=== PATIENT | male | born 1980 | race Caucasian/White ===

== ENCOUNTER 2024-04-06 16:14 | Emergency (ER) | payer OTHER, SELFPAY ==
--- NOTE | 2024-04-06 16:26 | ED_ITS ---
HPI - URI/Sore Throat General Chief Complaint: Upper Respiratory Infection Stated Complaint: Congestion/Sore Throat/Fever Time Seen by Provider: 04/06/24 16:16 Source: patient Mode of arrival: ambulatory Limitations: no limitations History of Present Illness HPI Narrative: Rodrigo is a 43-year-old male patient presenting to the clinic today with complaints of cough and cold symptoms x1 week however today he developed chills and feeling feverish. Also reporting sore throat starting today. Denies any chest pain or shortness of breath. Morrison like he was wheezing last night and took 2 puffs of his son inhaler and felt better MD elicited complaint: sore throat and nasal congestion Related Data Home Medications ?Medication ?Instructions ?Recorded ?Confirmed ?Last Taken ?Type gabapentin 300 mg capsule 300 mg PO DAILY 03/18/24 03/18/24 Unknown History loratadine 10 mg capsule (Allergy 10 mg PO DAILY 03/18/24 03/18/24 Unknown History Relief (loratadine)) pantoprazole 40 mg tablet,delayed 40 mg PO QAM 03/18/24 03/18/24 Unknown History release propranolol 40 mg tablet 80 mg PO Q12H 03/18/24 03/18/24 Unknown History topiramate 50 mg tablet 50 mg PO BID 03/18/24 03/18/24 Unknown History valsartan 80 1 tablet PO DAILY 03/18/24 03/18/24 Unknown History mg-hydrochlorothiazide 12.5 mg tablet Allergies Allergy/AdvReac Type Severity Reaction Status Date / Time No Known Allergies Allergy Verified 04/06/24 16:39 Review of Systems Review of Systems: Pertinent positives per HPI. Patient denies any rash, headache, visual changes, dizziness, shortness of breath, chest pain, palpitations, nausea, vomiting, diarrhea, constipation, abdominal pain, or any urinary issues. [facility] Surgical History Surgical History (System 03/24/24 @ 13:25 by Charmaine Copeland) History of wisdom tooth extraction History of knee surgery rt meniscus and Left meniscus Family History Family History (System 03/24/24 @ 13:25 by Charmaine Copeland) Grandparent Cerebrovascular accident Father Heart disease Social History Social History (System 03/24/24 @ 13:25 by Charmaine Copeland) Smoking status: Never smoker Alcohol intake: current Substance use: never Do You Feel Safe in your Home?: Yes Lack of Transportation: No Lack of Food: Never True Current Housing: I Have Housing Concerned About Future Housing: No Difficulty Paying Gas/Electric Bills: No Difficulty Paying for Meds: No Currently Unemployed: No Education: Master's Degree or Higher Difficulty w/ Childcare or Family Care: No Comments At the time of my signature, I reviewed and agree with the nursing past medical, surgical, social, and family history. There is no relevant family history pertinent to the patient complaint. Exam Narrative: General: Well-developed, well nourished, in no apparent distress Head: Normocephalic, atraumatic Eyes: Pupils equally round and reactive to light bilaterally, EOM intact, sclera and conjunctive clear, no discharge, lids normal Ears: TMs intact and congested, ear canals clear, no drainage, grossly hearing normal. Nose: Nares patent, clear nasal discharge, no inflammation, no sinus tenderness. Mouth: Oral pharynx red without lesions or masses, good dentition, MMM. Postnasal drip Neck: Supple, trachea midline, no enlargement of anterior or posterior cervical nodes, no thyroid masses or goiter palpable. Cardio: Regular rate and rhythm, s1 and s2 normal, no murmur appreciated. Resp: Clear to auscultation bilaterally, no rhonchi, rales, wheezing or rubs Course Course Emergency Course: Portions of this record may have been created with voice recognition software. Level of Care: Express Care Visit Vital Signs Vital signs: Vital Signs Temperature 37.7 C H 04/06/24 16:30 Pulse Rate 93 04/06/24 16:30 Respiratory Rate 16 04/06/24 16:30 Blood Pressure 137/79 04/06/24 16:30 Pulse Oximetry 100 04/06/24 16:30 Temperature 37.7 C H 04/06/24 16:30 Pulse Rate 93 04/06/24 16:30 Respiratory Rate 16 04/06/24 16:30 Blood Pressure 137/79 04/06/24 16:30 Pulse Oximetry 100 04/06/24 16:30 Vital signs reviewed MDM - URI/Sore Throat MDM Narrative Medical decision making narrative: At the time of visit patient is resting comfortably on the exam table. Patient appears to be nontoxic. Labs: Strep and influenza testing was performed. All testing was negative. Plan: I suspect patient has URI with cough and congestion/pharyngitis. Will place him on albuterol inhaler and prednisone. Supportive measures were discussed with the patient and they voiced understanding discharge instructions and agrees to treatment plan. Return precautions reviewed Differential Diagnosis Differential diagnosis: Likely upper respiratory infection, otitis media, sinusitis, viral infection, bronchitis, influenza, pharyngitis and other (COVID) Lab Data Labs: Lab Results 04/06/24 04/06/24 Range/Units 16:35 16:40 POC Influenza A Ag Negative (Negative) POC Influenza B Ag Negative (Negative) POC Grp A Strep Screen Negative (Negative) Discharge Plan Discharge Clinical Impression: Viral infection Upper respiratory infection Qualifiers: URI type: unspecified URI Qualified Code(s): J06.9 - Acute upper respiratory infection, unspecified Pharyngitis Qualifiers: Pharyngitis/tonsillitis etiology: unspecified etiology Qualified Code(s): J02.9 - Acute pharyngitis, unspecified Patient Disposition: Home, Self-Care Condition: Stable Instructions: Antibiotic Form, Pharyngitis (ED), Viral Syndrome (ED), Cold Symptoms (ED) Additional Instructions: Influenza and strep test were all negative. We will send strep for culture Take prescription medications only as prescribed Increase fluids and stay well hydrated Tylenol/motrin for pain/fever Flonase and OTC antihistamines as directed Vicks vapor rub to open sinuses Sinus rinses for congestion Cepacol spray, cough drops, throat lozenges, warm tea with honey/lemon, gargle salt water to soothe throat BRAT diet for diarrhea Clear liquids x 24 hours then advance as tolerated for nausea/vomiting Go to the ED if you develop a worsening in your condition- high fever not controlled by Tylenol or Motrin, dehydration, weakness, lethargy, shortness of breath, or chest pain. Follow up with your PCP in 3-5 days if symptoms persist. Patient Language: Hebrew Prescriptions: New prednisone 20 mg tablet 40 mg PO DAILY 5 Days Qty: 10 0RF albuterol sulfate 90 mcg/actuation HFA aerosol inhaler 2 puff inhalation Q4-6H PRN (Reason: shortness of breath or wheezing) 30 Days Qty: 8.5 0RF No Action valsartan-hydrochlorothiazide 80-12.5 mg tablet 1 tablet PO DAILY Allergy Relief (loratadine) 10 mg capsule 10 mg PO DAILY topiramate 50 mg tablet 50 mg PO BID gabapentin 300 mg capsule 300 mg PO DAILY propranolol 40 mg tablet 80 mg PO Q12H pantoprazole 40 mg tablet,delayed release (DR/EC) 40 mg PO QAM Follow-up/Referrals: Blake,MD Osvaldo [Primary Care Provider] - Stand Alone Forms: Work/School Release IP Time of Disposition: 16:47 Quality NIHSS Nursing Documentation ED NIHSS nursing documentation: reviewed/agree
[2024-04-06 16:30] VITALS: BP 137/79; PULSE 93; RESP 16; TEMP 37.7; O2SAT 100
[2024-04-06 16:37] LABS: EDSTREPNEGPOS1 Negative (Negative)
[2024-04-06 16:42] LABS: EDINFLUASCREEN Negative (Negative); EDINFLUBSCREEN Negative (Negative)
== END 2024-04-06 16:52 | disposition home or self-care (01) ==
PROVIDERS: Emergency Provider Nurse Practitioner Family; PCP Internal Medicine
DX: B34.9 Viral infection, unspecified (principal); J06.9 Acute upper respiratory infection, unspecified; J02.9 Acute pharyngitis, unspecified
CPT/HCPCS: 87081; 87804; 87880; 99213; G0463

== ENCOUNTER 2024-04-09 15:40 | Outpatient (CLI) | payer OTHER, SELFPAY ==
--- NOTE | ~2024-04-09 | MR_ITS ---
EXAMINATION: MR knee LT wo con DATE: 04/09/2024 16:19 INDICATION: Left knee pain. TECHNIQUE: Magnetic resonance imaging (MRI) of the left knee was performed without intravenous contra st. Sequences included axial PD-weighted FS FSE, coronal PD-weighted FSE and PD-weighted FS FSE, sagi ttal PD-weighted FSE, and sagittal T2-weighted FS FSE. COMPARISON: Left knee radiographs 03/18/2024 FINDINGS: Medial compartment: Medial meniscus is normal. Medial compartment cartilage is normal. Lateral compartment: There is a complex tear involving anterior horn and body of lateral meniscus. There is shallow partia l-thickness cartilage loss of tibial condyle. There is partial-thickness cartilage loss of femoral co ndyle, deep at the central articular surface. Osteophytes are noted. Patellofemoral compartment: The patellofemoral compartment cartilage is normal. Ligaments and tendons: The anterior and posterior cruciate ligament are normal. The medial collateral ligament and lateral c ollateral ligament complex are normal. There is mild patellar tendinopathy. Fluid: There is a small knee joint effusion. There is a small Oseguera's cyst. There is mild superficial infrap atellar bursitis. IMPRESSION: 1. Moderate chondrosis of lateral compartment. 2. Tear of lateral meniscus. 3. Small knee joint effusion. 4. Small Oseguera's cyst. Reviewed, dictated and finalized at location A. TH INFORMATION SPECIALIST
--- OUTSIDE RECORDS SUMMARY | 2024-04-09 15:50 | XMS_ITS | CONTINUITY OF CARE DOCUMENT ---
Author Name lo lo Address Unknown Organization [facility] Address [address] [place] [address] Phone [phone] Care Team Providers Care Railroad Commissioner Name Role Phone Henrry FLOYD, Bárbara Unavailable [phone] CANDACE WORLEY MD Unavailable [phone] CANDACE WORLEY MD Unavailable PROBLEMS Condition Status Date Provider Notes HTN essential active Mukesh Renteria MD Chest pain active Mukesh Renteria MD ENCOUNTERS Date Type Provider Location Encounter Diagnosis - In-person encounter Office Visit Mukesh Renteria MD [facility] Chest painHTN essential VITAL SIGNS Date Observation Value Provider Body Mass Index (Ratio) 36.03 kg/m2 Tirso Renteria MD blood pressure, cuff size large Ke krystian Gonzalez blood pressure, diastolic 97 mm[Hg] Jovany Gonzalez blood pressure, systolic 147 mm[Hg] Rhys Gonzalez oxygen saturation, oximetry 99 % Melanie Gonzalez respiratory rate E&M 16 /min Melanie guido pulse rate 82 /min Melanie rowell weight E&M 244 [lb_av] Melanie barclayer height E&M 69 [in_i] Melanie rowell HISTORY OF MEDICATION USE Medication Status Instructions Dates Provider Indications Com ments hydroxyzine pamoate 25 mg capsule active Melanie Gonzalez pantoprazole 40 mg tablet,delayed release (DR/EC) active Melanie Gonzalez valsartan-hydrochlo rothiazide 160-12.5 mg tablet active Melanie Gonzalez SOCIAL HISTORY Date Observation Value Provider drug use no Mukesh Renteria MD alcohol use, average drinks per day social Mukesh Renteria MD alcohol use yes Mukesh Renteria MD social history E&M S moking History: P diamond has never smoked. Mukesh Renteria MD social history reviewed E&M revi ewed - no changes required Mukesh Renteria MD smoking status Never smoker Melanie monreal INS[employer]ANCE PROVIDERS Payer name Policy type / Coverage type [employer] party ID [facility] [id number] Other [id number] ADVANCE DIRECTIVES Name Date DISCUSSED - NO DECISION MADE TREATMENT PLAN Date Name Performer [id number],S,No follow up unless he needs to Mukesh Renteria MD [id number],S, B P today: 147/97 Mukesh Renteria MD Cardiology:No follow up unless h e needs to Mukesh Renteria MD Cardiology: B P today: 147/97 Mukesh Renteria MD
--- OUTSIDE RECORDS SUMMARY | 2024-04-09 15:50 | XMS_ITS | Data Portability ---
Author Organization [facility] Wilbur Piedra Address [address] [place] [address] Care Team Providers Care Case Technician Name Role Phone CANDACE LOZANO Primary Care Provider Unavailabl e Assessment Encounter Date Assessment Date Assessment LastModified by Organization Details LastModified Time 05/06/2023 05/06/2023 The face could b e some early trigeminal neuralgia may be some TMJ I will go ahead and get a mandible x-ray we will start gabapentin 300 mg at night side effects discussed he has an appointment with his neurologist in July and I told him to be sure that he brings this up headaches Topamax hypertension valsartan hydrochlorothiazide GERD pantoprazole anxiety hydroxyzine follow-up with me in 4 months to 6 months time blood work ordered Not available 05/06/2023 12:22:27 08/15/2023 08/15/2023 Blood pressure controlled restart gabapentin for his neurological sensations in his head and he has seen neurologist before also hydrocortisone suppositories follow-up 6 months. [email or web address] Not available 08/17/2023 21:52:29 12/16/2023 12/16/2023 blood work urine scrotal ultrasound urology hypertension headache GERD and his scrotal pain all discussed. All questions answered. [email or web address] Not available 12/21/2023 20:39:32 01/23/2024 01/23/2024 given the chroni city of the symptoms we will obtain blood work a CT of the abdomen and pelvis also we will give him some pantoprazole he will continue to follow up with Neurology and Urology Not available 01/25/2024 13:09:21 Plan of Treatment Reminders Order Date Submit Date Provider Last Modified By Organization Details Last Modified Time Details Appointments ANY 15 2024 09:00A M Candace Lozano MD Not available Not available Not available Lab urinalysi s, microscop ic 2023 024 FELICIA Healy, [address], [place], [address], 05/07/2023 06:16:53 CBC w/ auto diff 2023 024 FELICIA Healy, [address], [place], [address], 05/07/2023 06:16:51 CMP, serum or plasma 2023 024 FELICIA Healy, [address], [place], [address], 05/07/2023 06:16:50 lipid panel, serum 2023 024 FELICIA Healy, [address], [place], [address], 05/07/2023 06:16:49 CBC w/ auto diff 2023 024 FELICIA Healy, [address], [place], [address], 08/17/2023 08:22:46 lipid panel, serum 2023 024 FELICIA Healy, [address], [place], [address], 08/17/2023 08:22:44 CMP, serum or plasma 2023 024 FELICIA Healy, [address], [place], [address], 08/17/2023 08:22:44 urinalysi s, complete 2023 024 FELICIA Healy, [address], [place], [address], 08/17/2023 08:22:45 urinalysi s, complete 2023 024 FELICIA Healy, [address], [place], [address], 12/17/2023 09:15:23 CBC w/ auto diff 2023 024 FELICIA Healy, [address], [place], [address], 12/17/2023 09:15:25 lipid panel, serum 2023 024 FELICIA Healy, [address], [place], [address], 12/17/2023 09:15:19 CMP, serum or plasma 2023 024 FELICIA Healy, [address], [place], [address], 12/17/2023 09:15:21 urinalysi s, microscop ic 2023 024 FELICIA Healy, [address], [place], [address], 12/17/2023 09:15:22 CBC w/ auto diff 2023 024 FELICIA Healy, [address], [place], [address], 01/25/2024 08:24:50 lipase, serum or plasma 2023 024 FELICIA Healy, [address], [place], [address], 01/25/2024 08:24:49 CMP, serum or plasma 2023 024 FELICIA Healy, [address], [place], [address], 01/25/2024 08:24:48 ESR (erythroc yte sedimenta tion rate), blood 2023 024 [place] [facility], [address], [place], [address], 01/25/2024 08:24:51 Referral urologist referral 2023 024 мария Garvey MD, [address] [facility] [address], [place], [address], 03/17/2024 12:55:47 Procedures None recorded. Surgeries None recorded. Imaging XR, mandible 2023 024 [facility] (Imaging), [address], [place], [address], 08/19/2023 10:01:41 US, scrotum - With Doppler [address] (Imaging), [address] [facility] [address], [place], [address], 12/24/2023 15:57:28 CT, abdomen + pelvis, w/ contrast 2023 024 [facility] (Imaging), [address] [facility] [facility] [address], [place], [address], 02/07/2024 15:38:37 Medication Orders gabapenti n 300 mg capsule 2023 024 [place] [address] [facility] #[id number], [address], [place], [place], [id number], 05/06/2023 11:25:48 hydrocort isone acetate 25 mg rectal supposito ry 2023 024 [place] [address] [facility] #[id number], [address], [place], [place], [id number], 08/15/2023 21:48:30 ibuprofen 800 mg tablet 2023 024 [email or web address] [facility] #[id number], [address], [place], [place], [id number], 12/16/2023 13:54:45 pantopraz ole 40 mg tablet,de layed release 2023 024 [facility] #[id number], [address], [place], [place], [id number], 01/23/2024 18:11:15 Patient TargetsNo targets recorded. Patient Instructions Encounter Date Encounter Id Patient Instructions Last Modified By Organization Details Last Modified Time 12/16/2023 [id number] A healthy lifestyle: care instructions [email or web address] Not available 12/16/2023 10:51:41 Reason for Referral Urologist Referral for Pain in scrotum Referring Physician: Candace Lozano, Internal Medicine, Encounter Date: 12/16/2023 Results Created Date Observation Date Name Description Value Unit Range Abnormal Flag Note LastModifiedBy Organization Detail LastModifiedTime 05/06/1905/07/2023 LIPID PANEL cholesterol, total 189 mg/dL 100-19 9 Not Available [facility] [address] [facility], [place], [address], 05/07/2023 06:16:49 05/06/1905/07/2023 LIPID PANEL triglyceride s 97 mg/dL 0-149 Not Available [facility] [address] [facility], [place], [address], 05/07/2023 06:16:49 05/06/1905/07/2023 LIPID PANEL HDL cholesterol 49 mg/dL >39 Not Available [facility] [address] [place], [address], 05/07/2023 06:16:49 05/06/1905/07/2023 LIPID PANEL VLDL cholesterol geovany 18 mg/dL 5-40 Not Available [facility] [address] [place], [address], 05/07/2023 06:16:49 05/06/19 24 05/07/2023 LIPID PANEL LDL chol calc ([facility]) 122 mg/dL 0-99 above high normal Not Available [facility] [address] [place], [address], 05/07/2023 06:16:49 05/06/19 24 05/07/2023 COMP. METAB OLIC PANEL (14) glucose 92 mg/dL 70-99 Not Available [facility] [address] [place], [address], 05/07/2023 06:16:50 05/06/19 24 05/07/2023 COMP. METAB OLIC PANEL (14) BUN 12 mg/dL 6-24 Not Available [facility] [address] [place], [address], 05/07/2023 06:16:50 05/06/19 24 05/07/2023 COMP. METAB OLIC PANEL (14) creatinine 1.11 mg/dL 0.76-1 .27 Not Available [facility] [address] [place], [address], 05/07/2023 06:16:50 05/06/19 24 05/07/2023 COMP. METAB OLIC PANEL (14) eGFR 86 mL/mi n/1.7 3 >59 Not Available [facility] [address] [place], [address], 05/07/2023 06:16:50 05/06/19 24 05/07/2023 COMP. METAB OLIC PANEL (14) BUN/creatini ne ratio 11 9-20 Not Available [facility] [address] [place], [address], 05/07/2023 06:16:50 05/06/19 24 05/07/2023 COMP. METAB OLIC PANEL (14) sodium 141 mmol/ L 134-14 4 Not Available [facility] [address] [place], [address], 05/07/2023 06:16:50 05/06/19 24 05/07/2023 COMP. METAB OLIC PANEL (14) potassium 4.2 mmol/ L 3.5-5. 2 Not Available [facility] [address] [place], [address], 05/07/2023 06:16:50 05/06/19 24 05/07/2023 COMP. METAB OLIC PANEL (14) chloride 107 mmol/ L 96-106 above high normal Not Available [facility] [address] [place], [address], 05/07/2023 06:16:50 05/06/19 24 05/07/2023 COMP. METAB OLIC PANEL (14) carbon dioxide, total 22 mmol/ L 20-29 Not Available [facility] [address] [place], [address], 05/07/2023 06:16:50 05/06/19 24 05/07/2023 COMP. METAB OLIC PANEL (14) calcium 9.0 mg/dL 8.7-10 .2 Not Available [facility] [address] [place], [address], 05/07/2023 06:16:50 05/06/19 24 05/07/2023 COMP. METAB OLIC PANEL (14) protein, total 6.7 g/dL 6.0-8. 5 Not Available [facility] [address] [facility] [place], [address], 05/07/2023 06:16:50 05/06/19 24 05/07/2023 COMP. METAB OLIC PANEL (14) albumin 4.6 g/dL 4.1-5. 1 Not Available [facility] [address] [facility] [place], [address], 05/07/2023 06:16:50 05/06/19 24 05/07/2023 COMP. METAB OLIC PANEL (14) globulin, total 2.1 g/dL 1.5-4. 5 Not Available [facility] [address] [facility], [place], [address], 05/07/2023 06:16:50 05/06/19 24 05/07/2023 COMP. METAB OLIC PANEL (14) A/G ratio 2.2 1.2-2. 2 Not Available [facility] [address] [facility], [place], [address], 05/07/2023 06:16:50 05/06/19 24 05/07/2023 COMP. METAB OLIC PANEL (14) bilirubin, total 0.5 mg/dL 0.0-1. 2 Not Available [facility] [address] [facility] [place], [address], 05/07/2023 06:16:50 05/06/19 24 05/07/2023 COMP. METAB OLIC PANEL (14) alkaline phosphatase 59 IU/L 44-121 Not Available [facility] [address] [facility], [place], [address], 05/07/2023 06:16:50 05/06/19 24 05/07/2023 COMP. METAB OLIC PANEL (14) AST (SGOT) 18 IU/L 0-40 Not Available [facility] [address] [facility], [place], [address], 05/07/2023 06:16:50 05/06/19 24 05/07/2023 COMP. METAB OLIC PANEL (14) ALT (SGPT) 18 IU/L 0-44 Not Available [facility] [address] [facility], [place], [address], 05/07/2023 06:16:50 05/06/19 24 05/07/2023 CBC WITH DIFFE RENTI AL/PL ATELE T WBC 7.1 x10e3 /uL 3.4-10 .8 Not Available [facility] [address] [facility], [place], [address], 05/07/2023 06:16:51 05/06/1905/07/2023 CBC WITH DIFFE RENTI AL/PL ATELE T RBC 5.24 x10e6 /uL 4.14-5 .80 Not Available [facility] [address] [place], [address], 05/07/2023 06:16:51 05/06/19 24 05/07/2023 CBC WITH DIFFE RENTI AL/PL ATELE T hemoglobin 15.4 g/dL 13.0-1 7.7 Not Available [facility] [address] [place], [address], 05/07/2023 06:16:51 05/06/19 24 05/07/2023 CBC WITH DIFFE RENTI AL/PL ATELE T hematocrit 45.3 % 37.5-5 1.0 Not Available [facility] [address] [place], [address], 05/07/2023 06:16:51 05/06/1905/07/2023 CBC WITH DIFFE RENTI AL/PL ATELE T MCV 87 fL 79-97 Not Available [facility] [address] [place], [address], 05/07/2023 06:16:51 05/06/19 24 05/07/2023 CBC WITH DIFFE RENTI AL/PL ATELE T MCH 29.4 pg 26.6-3 3.0 Not Available [facility] [address] [place], [address], 05/07/2023 06:16:51 05/06/19 24 05/07/2023 CBC WITH DIFFE RENTI AL/PL ATELE T MCHC 34.0 g/dL 31.5-3 5.7 Not Available [facility] [address] [facility], [place], [address], 05/07/2023 06:16:51 05/06/19 24 05/07/2023 CBC WITH DIFFE RENTI AL/PL ATELE T RDW 13.0 % 11.6-1 5.4 Not Available [facility] [address] [facility], [place], [address], 05/07/2023 06:16:51 05/06/19 24 05/07/2023 CBC WITH DIFFE RENTI AL/PL ATELE T platelets 239 x10e3 /uL 150-45 0 Not Available [facility] [address] [place], [address], 05/07/2023 06:16:51 05/06/19 24 05/07/2023 CBC WITH DIFFE RENTI AL/PL ATELE T neutrophils 72 % notest ab. Not Available [facility] [address] [place], [address], 05/07/2023 06:16:51 05/06/19 24 05/07/2023 CBC WITH DIFFE RENTI AL/PL ATELE T lymphs 18 % notest ab. Not Available [facility] [address] [place], [address], 05/07/2023 06:16:51 05/06/19 24 05/07/2023 CBC WITH DIFFE RENTI AL/PL ATELE T monocytes 8 % notest ab. Not Available [facility] [address] [facility], [place], [address], 05/07/2023 06:16:51 05/06/19 24 05/07/2023 CBC WITH DIFFE RENTI AL/PL ATELE T eos 1 % notest ab. Not Available [facility] [address] [facility], [place], [address], 05/07/2023 06:16:51 05/06/19 24 05/07/2023 CBC WITH DIFFE RENTI AL/PL ATELE T basos 1 % notest ab. Not Available [facility] [address] [facility], [place], [address], 05/07/2023 06:16:51 05/06/19 24 05/07/2023 CBC WITH DIFFE RENTI AL/PL ATELE T neutrophils (absolute) 5.2 x10e3 /uL 1.4-7. 0 Not Available [facility] [address] [facility], [place], [address], 05/07/2023 06:16:51 05/06/19 24 05/07/2023 CBC WITH DIFFE RENTI AL/PL ATELE T lymphs (absolute) 1.3 x10e3 /uL 0.7-3. 1 Not Available [facility] [address] [facility], [place], [address], 05/07/2023 06:16:51 05/06/19 24 05/07/2023 CBC WITH DIFFE RENTI AL/PL ATELE T monocytes(ab solute) 0.5 x10e3 /uL 0.1-0. 9 Not Available [facility] [address] [facility], [place], [address], 05/07/2023 06:16:51 05/06/19 24 05/07/2023 CBC WITH DIFFE RENTI AL/PL ATELE T eos (absolute) 0.1 x10e3 /uL 0.0-0. 4 Not Available [facility] [address] [facility], [place], [address], 05/07/2023 06:16:51 05/06/19 24 05/07/2023 CBC WITH DIFFE RENTI AL/PL ATELE T baso (absolute) 0.1 x10e3 /uL 0.0-0. 2 Not Available [facility] [address] [facility], [place], [address], 05/07/2023 06:16:51 05/06/19 24 05/07/2023 CBC WITH DIFFE RENTI AL/PL ATELE T immature granulocytes 0 % notest ab. Not Available [facility] [address] [facility], [place], [address], 05/07/2023 06:16:51 05/06/19 24 05/07/2023 CBC WITH DIFFE RENTI AL/PL ATELE T immature grans (abs) 0.0 x10e3 /uL 0.0-0. 1 Not Available [facility] [address] [place], [address], 05/07/2023 06:16:51 05/06/19 24 05/07/2023 MICRO SCOPI C EXAMI NATIO N WBC None seen /hpf 0-5 Not Available [facility] [address] [place], [address], 05/07/2023 06:16:53 05/06/19 24 05/07/2023 MICRO SCOPI C EXAMI NATIO N RBC 0-2 /hpf 0-2 Not Available [facility] [address] [place], [address], 05/07/2023 06:16:53 05/06/19 24 05/07/2023 MICRO SCOPI C EXAMI NATIO N epithelial cells (non renal) None seen /hpf 0-10 Not Available [facility] ([facility] [facility]) [address] [facility], [place], [address], 05/07/2023 06:16:53 05/06/19 24 05/07/2023 MICRO SCOPI C EXAMI NATIO N casts None seen /lpf nonese en Not Available [facility] [address] [facility], [place], [address], 05/07/2023 06:16:53 05/06/19 24 05/07/2023 MICRO SCOPI C EXAMI NATIO N bacteria None seen nonese en/few Not Available [facility] [address] [facility], [place], [address], 05/07/2023 06:16:53 08/16/19 24 08/17/2023 LIPID PANEL cholesterol, total 202 mg/dL 100-19 9 above high normal Not Available [facility] [address] [facility], [place], [address], 08/17/2023 08:22:44 08/16/19 24 08/17/2023 LIPID PANEL triglyceride s 101 mg/dL 0-149 Not Available [facility] [address] [facility], [place], [address], 08/17/2023 08:22:44 08/16/19 24 08/17/2023 LIPID PANEL HDL cholesterol 39 mg/dL >39 below low normal Not Available [facility] [address] [facility], [place], [address], 08/17/2023 08:22:44 08/16/19 24 08/17/2023 LIPID PANEL VLDL cholesterol geovany 18 mg/dL 5-40 Not Available [facility] [address] [facility], [place], [address], 08/17/2023 08:22:44 08/16/19 24 08/17/2023 LIPID PANEL LDL chol calc ([facility]) 145 mg/dL 0-99 above high normal Not Available [facility] [address] [place], [address], 08/17/2023 08:22:44 08/16/19 24 08/17/2023 COMP. METAB OLIC PANEL (14) glucose 86 mg/dL 70-99 Not Available [facility] [address] [place], [address], 08/17/2023 08:22:44 08/16/19 24 08/17/2023 COMP. METAB OLIC PANEL (14) BUN 14 mg/dL 6-24 Not Available [facility] [address] [place], [address], 08/17/2023 08:22:44 08/16/19 24 08/17/2023 COMP. METAB OLIC PANEL (14) creatinine 1.26 mg/dL 0.76-1 .27 Not Available [facility] [address] [place], [address], 08/17/2023 08:22:44 08/16/19 24 08/17/2023 COMP. METAB OLIC PANEL (14) eGFR 73 mL/mi n/1.7 3 >59 Not Available [facility] [address] [place], [address], 08/17/2023 08:22:44 08/16/19 24 08/17/2023 COMP. METAB OLIC PANEL (14) BUN/creatini ne ratio 11 9-20 Not Available [facility] [address] [place], [address], 08/17/2023 08:22:44 08/16/19 24 08/17/2023 COMP. METAB OLIC PANEL (14) sodium 140 mmol/ L 134-14 4 Not Available [facility] [address] [place], [address], 08/17/2023 08:22:44 08/16/19 24 08/17/2023 COMP. METAB OLIC PANEL (14) potassium 3.9 mmol/ L 3.5-5. 2 Not Available [facility] [address] [place], [address], 08/17/2023 08:22:44 08/16/19 24 08/17/2023 COMP. METAB OLIC PANEL (14) chloride 106 mmol/ L 96-106 Not Available [facility] [address] [place], [address], 08/17/2023 08:22:44 08/16/19 24 08/17/2023 COMP. METAB OLIC PANEL (14) carbon dioxide, total 19 mmol/ L 20-29 below low normal Not Available [facility] [address] [place], [address], 08/17/2023 08:22:44 08/16/19 24 08/17/2023 COMP. METAB OLIC PANEL (14) calcium 9.1 mg/dL 8.7-10 .2 Not Available [facility] [address] [place], [address], 08/17/2023 08:22:44 08/16/19 24 08/17/2023 COMP. METAB OLIC PANEL (14) protein, total 6.9 g/dL 6.0-8. 5 Not Available [facility] [address] [place], [address], 08/17/2023 08:22:44 08/16/19 24 08/17/2023 COMP. METAB OLIC PANEL (14) albumin 4.3 g/dL 4.1-5. 1 Not Available [facility] [address] [place], [address], 08/17/2023 08:22:44 08/16/19 24 08/17/2023 COMP. METAB OLIC PANEL (14) globulin, total 2.6 g/dL 1.5-4. 5 Not Available [facility] [address] [place], [address], 08/17/2023 08:22:44 08/16/19 24 08/17/2023 COMP. METAB OLIC PANEL (14) A/G ratio 1.7 Not Available [facility] [address] [facility], [place], [address], 08/17/2023 08:22:44 08/16/19 24 08/17/2023 COMP. METAB OLIC PANEL (14) bilirubin, total 0.7 mg/dL 0.0-1. 2 Not Available [facility] [address] [place], [address], 08/17/2023 08:22:44 08/16/19 24 08/17/2023 COMP. METAB OLIC PANEL (14) alkaline phosphatase 63 IU/L 44-121 Not Available [facility] [address] [place], [address], 08/17/2023 08:22:44 08/16/19 24 08/17/2023 COMP. METAB OLIC PANEL (14) AST (SGOT) 14 IU/L 0-40 Not Available [facility] [address] [place], [address], 08/17/2023 08:22:44 08/16/19 24 08/17/2023 COMP. METAB OLIC PANEL (14) ALT (SGPT) 15 IU/L 0-44 Not Available [facility] [address] [place], [address], 08/17/2023 08:22:44 08/16/19 24 08/17/2023 MICRO SCOPI C EXAMI NATIO N WBC None seen /hpf 0-5 Not Available [facility] [address] [facility], [place], [address], 08/17/2023 08:22:45 08/16/19 24 08/17/2023 MICRO SCOPI C EXAMI NATIO N RBC None seen /hpf 0-2 Not Available [facility] [address] [facility], [place], [address], 08/17/2023 08:22:45 08/16/19 24 08/17/2023 MICRO SCOPI C EXAMI NATIO N epithelial cells (non renal) None seen /hpf 0-10 Not Available [facility] [address] [facility], [place], [address], 08/17/2023 08:22:45 08/16/19 24 08/17/2023 MICRO SCOPI C EXAMI NATIO N casts None seen /lpf nonese en Not Available [facility] [address] [facility], [place], [address], 08/17/2023 08:22:45 08/16/19 24 08/17/2023 MICRO SCOPI C EXAMI NATIO N bacteria None seen nonese en/few Not Available [facility] [address] [facility], [place], [address], 08/17/2023 08:22:45 08/16/19 24 08/17/2023 URINA LYSIS , COMPL ETE specific gravity 1.027 1.005- 1.030 Not Available [facility] [address] [facility], [place], [address], 08/17/2023 08:22:45 08/16/19 24 08/17/2023 URINA LYSIS , COMPL ETE pH 5.5 5.0-7. 5 Not Available [facility] [address] [facility], [place], [address], 08/17/2023 08:22:45 08/16/19 24 08/17/2023 URINA LYSIS , COMPL ETE urine-color YELLOW yellow Not Available [facility] [address] [facility], [place], [address], 08/17/2023 08:22:45 08/16/19 24 08/17/2023 URINA LYSIS , COMPL ETE appearance CLEAR clear Not Available [facility] [address] [place], [address], 08/17/2023 08:22:45 08/16/19 24 08/17/2023 URINA LYSIS , COMPL ETE WBC esterase NEGATI VE negati ve Not Available [facility] [address] [place], [address], 08/17/2023 08:22:45 08/16/19 24 08/17/2023 URINA LYSIS , COMPL ETE protein NEGATI VE negati ve/tra ce Not Available [facility] [address] [place], [address], 08/17/2023 08:22:45 08/16/19 24 08/17/2023 URINA LYSIS , COMPL ETE glucose NEGATI VE negati ve Not Available [facility] [address] [place], [address], 08/17/2023 08:22:45 08/16/19 24 08/17/2023 URINA LYSIS , COMPL ETE ketones NEGATI VE negati ve Not Available [facility] [address] [place], [address], 08/17/2023 08:22:45 08/16/19 24 08/17/2023 URINA LYSIS , COMPL ETE occult blood NEGATI VE negati ve Not Available [facility] [address] [place], [address], 08/17/2023 08:22:45 08/16/19 24 08/17/2023 URINA LYSIS , COMPL ETE bilirubin NEGATI VE negati ve Not Available [facility] [address] [facility], [place], [address], 08/17/2023 08:22:45 08/16/19 24 08/17/2023 URINA LYSIS , COMPL ETE urobilinogen ,semi-qn 0.2 mg/dL 0.2-1. 0 Not Available [facility] [address] [facility], [place], [address], 08/17/2023 08:22:45 08/16/19 24 08/17/2023 URINA LYSIS , COMPL ETE nitrite, urine NEGATI VE negati ve Not Available [facility] [address] [facility], [place], [address], 08/17/2023 08:22:45 08/16/19 24 08/17/2023 URINA LYSIS , COMPL ETE microscopic examination COMMEN T Micro scopi c follo ws if indic ated. Not Available [facility] [address] [facility], [place], [address], 08/17/2023 08:22:45 08/16/19 24 08/17/2023 URINA LYSIS , COMPL ETE microscopic examination SEE BELOW: Micro scopi c was indic ated and was perfo rmed. Not Available [facility] [address] [facility], [place], [address], 08/17/2023 08:22:45 08/16/19 24 08/17/2023 CBC WITH DIFFE RENTI AL/PL ATELE T WBC 6.3 x10e3 /uL 3.4-10 .8 Not Available [facility] [address] [place], [address], 08/17/2023 08:22:46 08/16/19 24 08/17/2023 CBC WITH DIFFE RENTI AL/PL ATELE T RBC 5.46 x10e6 /uL 4.14-5 .80 Not Available [facility] [address] [place], [address], 08/17/2023 08:22:46 08/16/19 24 08/17/2023 CBC WITH DIFFE RENTI AL/PL ATELE T hemoglobin 16.0 g/dL 13.0-1 7.7 Not Available [facility] [address] [place], [address], 08/17/2023 08:22:46 08/16/19 24 08/17/2023 CBC WITH DIFFE RENTI AL/PL ATELE T hematocrit 47.6 % 37.5-5 1.0 Not Available [facility] [address] [place], [address], 08/17/2023 08:22:46 08/16/19 24 08/17/2023 CBC WITH DIFFE RENTI AL/PL ATELE T MCV 87 fL 79-97 Not Available [facility] [address] [place], [address], 08/17/2023 08:22:46 08/16/19 24 08/17/2023 CBC WITH DIFFE RENTI AL/PL ATELE T MCH 29.3 pg 26.6-3 3.0 Not Available [facility] [address] [place], [address], 08/17/2023 08:22:46 08/16/19 24 08/17/2023 CBC WITH DIFFE RENTI AL/PL ATELE T MCHC 33.6 g/dL 31.5-3 5.7 Not Available [facility] [address] [place], [address], 08/17/2023 08:22:46 08/16/19 24 08/17/2023 CBC WITH DIFFE RENTI AL/PL ATELE T RDW 13.3 % 11.6-1 5.4 Not Available [facility] [address] [facility], [place], [address], 08/17/2023 08:22:46 08/16/19 24 08/17/2023 CBC WITH DIFFE RENTI AL/PL ATELE T platelets 268 x10e3 /uL 150-45 0 Not Available [facility] [address] [facility], [place], [address], 08/17/2023 08:22:46 08/16/19 24 08/17/2023 CBC WITH DIFFE RENTI AL/PL ATELE T neutrophils 68 % notest ab. Not Available [facility] [address] [facility], [place], [address], 08/17/2023 08:22:46 08/16/19 24 08/17/2023 CBC WITH DIFFE RENTI AL/PL ATELE T lymphs 23 % notest ab. Not Available [facility] [address] [facility], [place], [address], 08/17/2023 08:22:46 08/16/19 24 08/17/2023 CBC WITH DIFFE RENTI AL/PL ATELE T monocytes 7 % notest ab. Not Available [facility] [address] [facility], [place], [address], 08/17/2023 08:22:46 08/16/19 24 08/17/2023 CBC WITH DIFFE RENTI AL/PL ATELE T eos 1 % notest ab. Not Available [facility] [address] [facility], [place], [address], 08/17/2023 08:22:46 08/16/19 24 08/17/2023 CBC WITH DIFFE RENTI AL/PL ATELE T basos 1 % notest ab. Not Available [facility] ([facility]) [address] [place], [address], 08/17/2023 08:22:46 08/16/19 24 08/17/2023 CBC WITH DIFFE RENTI AL/PL ATELE T neutrophils (absolute) 4.3 x10e3 /uL 1.4-7. 0 Not Available [facility] [address] [place], [address], 08/17/2023 08:22:46 08/16/19 24 08/17/2023 CBC WITH DIFFE RENTI AL/PL ATELE T lymphs (absolute) 1.4 x10e3 /uL 0.7-3. 1 Not Available [facility] [address] [place], [address], 08/17/2023 08:22:46 08/16/19 24 08/17/2023 CBC WITH DIFFE RENTI AL/PL ATELE T monocytes(ab solute) 0.4 x10e3 /uL 0.1-0. 9 Not Available [facility] ([facility]) [address] [place], [address], 08/17/2023 08:22:46 08/16/19 24 08/17/2023 CBC WITH DIFFE RENTI AL/PL ATELE T eos (absolute) 0.1 x10e3 /uL 0.0-0. 4 Not Available [facility] ([facility]) [address] [place], [address], 08/17/2023 08:22:46 08/16/19 24 08/17/2023 CBC WITH DIFFE RENTI AL/PL ATELE T baso (absolute) 0.0 x10e3 /uL 0.0-0. 2 Not Available [facility] ([facility]) [address] [place], [address], 08/17/2023 08:22:46 08/16/19 24 08/17/2023 CBC WITH DIFFE RENTI AL/PL ATELE T immature granulocytes 0 % notest ab. Not Available [facility] [address] [facility], [place], [address], 08/17/2023 08:22:46 08/16/19 24 08/17/2023 CBC WITH DIFFE RENTI AL/PL ATELE T immature grans (abs) 0.0 x10e3 /uL 0.0-0. 1 Not Available [facility] [address] [place], [address], 08/17/2023 08:22:46 12/16/19 24 12/17/2023 LIPID PANEL cholesterol, total 208 mg/dL 100-19 9 above high normal Not Available [facility] [address] [place], [address], 12/17/2023 09:15:19 12/16/19 24 12/17/2023 LIPID PANEL triglyceride s 173 mg/dL 0-149 above high normal Not Available [facility] [address] [place], [address], 12/17/2023 09:15:19 12/16/19 24 12/17/2023 LIPID PANEL HDL cholesterol 41 mg/dL >39 Not Available [facility] [address] [place], [address], 12/17/2023 09:15:19 12/16/19 24 12/17/2023 LIPID PANEL VLDL cholesterol geovany 31 mg/dL 5-40 Not Available [facility] [address] [place], [address], 12/17/2023 09:15:19 12/16/19 24 12/17/2023 LIPID PANEL LDL chol calc ([facility]) 136 mg/dL 0-99 above high normal Not Available [facility] [address] [facility], [place], [address], 12/17/2023 09:15:19 12/16/1912/17/2023 COMP. METAB OLIC PANEL (14) glucose 79 mg/dL 70-99 Not Available [facility] [address] [facility] [place], [address], 12/17/2023 09:15:21 12/16/19 24 12/17/2023 COMP. METAB OLIC PANEL (14) BUN 13 mg/dL 6-24 Not Available [facility] [address] [facility] [place], [address], 12/17/2023 09:15:21 12/16/19 24 12/17/2023 COMP. METAB OLIC PANEL (14) creatinine 1.17 mg/dL 0.76-1 .27 Not Available [facility] [address] [facility], [place], [address], 12/17/2023 09:15:21 12/16/1912/17/2023 COMP. METAB OLIC PANEL (14) eGFR 80 mL/mi n/1.7 3 >59 Not Available [facility] [address] [facility], [place], [address], 12/17/2023 09:15:21 12/16/19 24 12/17/2023 COMP. METAB OLIC PANEL (14) BUN/creatini ne ratio 11 9-20 Not Available [facility] [address] [facility] [place], [address], 12/17/2023 09:15:21 12/16/19 24 12/17/2023 COMP. METAB OLIC PANEL (14) sodium 141 mmol/ L 134-14 4 Not Available [facility] [address] [facility] [place], [address], 12/17/2023 09:15:21 12/16/19 24 12/17/2023 COMP. METAB OLIC PANEL (14) potassium 4.4 mmol/ L 3.5-5. 2 Not Available [facility] [address] [facility], [place], [address], 12/17/2023 09:15:21 12/16/19 24 12/17/2023 COMP. METAB OLIC PANEL (14) chloride 105 mmol/ L 96-106 Not Available [facility] [address] [facility], [place], [address], 12/17/2023 09:15:21 12/16/1912/17/2023 COMP. METAB OLIC PANEL (14) carbon dioxide, total 23 mmol/ L 20-29 Not Available [facility] [address] [facility], [place], [address], 12/17/2023 09:15:21 12/16/1912/17/2023 COMP. METAB OLIC PANEL (14) calcium 9.6 mg/dL 8.7-10 .2 Not Available [facility] [address] [facility], [place], [address], 12/17/2023 09:15:21 12/16/1912/17/2023 COMP. METAB OLIC PANEL (14) protein, total 7.3 g/dL 6.0-8. 5 Not Available [facility] [address] [facility], [place], [address], 12/17/2023 09:15:21 12/16/1912/17/2023 COMP. METAB OLIC PANEL (14) albumin 4.6 g/dL 4.1-5. 1 Not Available [facility] [address] [facility], [place], [address], 12/17/2023 09:15:21 12/16/1912/17/2023 COMP. METAB OLIC PANEL (14) globulin, total 2.7 g/dL 1.5-4. 5 Not Available [facility] [address] [facility] [place], [address], 12/17/2023 09:15:21 12/16/19 24 12/17/2023 COMP. METAB OLIC PANEL (14) bilirubin, total 0.6 mg/dL 0.0-1. 2 Not Available [facility] [address] [facility] [place], [address], 12/17/2023 09:15:21 12/16/1912/17/2023 COMP. METAB OLIC PANEL (14) alkaline phosphatase 63 IU/L 44-121 Not Available [facility] [address] [facility], [place], [address], 12/17/2023 09:15:21 12/16/19 24 12/17/2023 COMP. METAB OLIC PANEL (14) AST (SGOT) 17 IU/L 0-40 Not Available [facility] [address] [place], [address], 12/17/2023 09:15:21 12/16/19 24 12/17/2023 COMP. METAB OLIC PANEL (14) ALT (SGPT) 18 IU/L 0-44 Not Available [facility] [address] [place], [address], 12/17/2023 09:15:21 12/16/19 24 12/17/2023 MICRO SCOPI C EXAMI NATIO N WBC NONE SEEN /hpf 0-5 Not Available [facility] [address] [place], [address], 12/17/2023 09:15:22 12/16/19 24 12/17/2023 MICRO SCOPI C EXAMI NATIO N RBC NONE SEEN /hpf 0-2 Not Available [facility] [address], [place], [address], 12/17/2023 09:15:22 12/16/1912/17/2023 MICRO SCOPI C EXAMI NATIO N epithelial cells (non renal) NONE SEEN /hpf 0-10 Not Available [facility] [address], [place], [address], 12/17/2023 09:15:22 12/16/1912/17/2023 MICRO SCOPI C EXAMI NATIO N casts NONE SEEN /lpf nonese en Not Available [facility] [address] [facility], [place], [address], 12/17/2023 09:15:22 12/16/1912/17/2023 MICRO SCOPI C EXAMI NATIO N bacteria NONE SEEN nonese en/few Not Available [facility] [address] [facility], [place], [address], 12/17/2023 09:15:22 12/16/1912/17/2023 URINA LYSIS , COMPL ETE specific gravity 1.012 1.005- 1.030 Not Available [facility] [address] [facility], [place], [address], 12/17/2023 09:15:23 12/16/1912/17/2023 URINA LYSIS , COMPL ETE pH 6.5 5.0-7. 5 Not Available [facility] [address] [facility], [place], [address], 12/17/2023 09:15:23 12/16/1912/17/2023 URINA LYSIS , COMPL ETE urine-color YELLOW yellow Not Available [facility] [address] [facility], [place], [address], 12/17/2023 09:15:23 12/16/1912/17/2023 URINA LYSIS , COMPL ETE appearance CLEAR clear Not Available [facility] [address] [facility], [place], [address], 12/17/2023 09:15:23 12/16/1912/17/2023 URINA LYSIS , COMPL ETE WBC esterase NEGATI VE negati ve Not Available [facility] [address] [facility], [place], [address], 12/17/2023 09:15:23 12/16/1912/17/2023 URINA LYSIS , COMPL ETE protein NEGATI VE negati ve/tra ce Not Available [facility] [address] [facility], [place], [address], 12/17/2023 09:15:23 12/16/1912/17/2023 URINA LYSIS , COMPL ETE glucose NEGATI VE negati ve Not Available [facility] [address] [facility], [place], [address], 12/17/2023 09:15:23 12/16/1912/17/2023 URINA LYSIS , COMPL ETE ketones NEGATI VE negati ve Not Available [facility] [address] [facility], [place], [address], 12/17/2023 09:15:23 12/16/1912/17/2023 URINA LYSIS , COMPL ETE occult blood NEGATI VE negati ve Not Available [facility] [address] [facility], [place], [address], 12/17/2023 09:15:23 12/16/1912/17/2023 URINA LYSIS , COMPL ETE bilirubin NEGATI VE negati ve Not Available [facility] [address] [facility], [place], [address], 12/17/2023 09:15:23 12/16/19 24 12/17/2023 URINA LYSIS , COMPL ETE urobilinogen ,semi-qn 0.2 mg/dL 0.2-1. 0 Not Available [facility] [address] [facility], [place], [address], 12/17/2023 09:15:23 12/16/1912/17/2023 URINA LYSIS , COMPL ETE nitrite, urine NEGATI VE negati ve Not Available [facility] [address] [facility], [place], [address], 12/17/2023 09:15:23 12/16/1912/17/2023 URINA LYSIS , COMPL ETE microscopic examination COMMEN T Micro scopi c follo ws if indic ated. Not Available [facility] [address] [facility], [place], [address], 12/17/2023 09:15:23 12/16/1912/17/2023 URINA LYSIS , COMPL ETE microscopic examination SEE BELOW: Micro scopi c was indic ated and was perfo rmed. Not Available [facility] [address] [facility], [place], [address], 12/17/2023 09:15:23 12/16/1912/17/2023 CBC WITH DIFFE RENTI AL/PL ATELE T WBC 8.9 x10e3 /uL 3.4-10 .8 Not Available [facility] [address] [facility], [place], [address], 12/17/2023 09:15:25 12/16/1912/17/2023 CBC WITH DIFFE RENTI AL/PL ATELE T RBC 5.62 x10e6 /uL 4.14-5 .80 Not Available [facility] [address] [facility], [place], [address], 12/17/2023 09:15:25 12/16/1912/17/2023 CBC WITH DIFFE RENTI AL/PL ATELE T hemoglobin 16.7 g/dL 13.0-1 7.7 Not Available [facility] [address] [facility], [place], [address], 12/17/2023 09:15:25 12/16/1912/17/2023 CBC WITH DIFFE RENTI AL/PL ATELE T hematocrit 51.9 % 37.5-5 1.0 above high normal Not Available [facility] [address] [facility], [place], [address], 12/17/2023 09:15:25 12/16/1912/17/2023 CBC WITH DIFFE RENTI AL/PL ATELE T MCV 92 fL 79-97 Not Available [facility] [address] [facility], [place], [address], 12/17/2023 09:15:25 12/16/1912/17/2023 CBC WITH DIFFE RENTI AL/PL ATELE T MCH 29.7 pg 26.6-3 3.0 Not Available [facility] [address] [facility], [place], [address], 12/17/2023 09:15:25 12/16/1912/17/2023 CBC WITH DIFFE RENTI AL/PL ATELE T MCHC 32.2 g/dL 31.5-3 5.7 Not Available [facility] [address] [place], [address], 12/17/2023 09:15:25 12/16/1912/17/2023 CBC WITH DIFFE RENTI AL/PL ATELE T RDW 12.7 % 11.6-1 5.4 Not Available [facility] [address] [place], [address], 12/17/2023 09:15:25 12/16/19 24 12/17/2023 CBC WITH DIFFE RENTI AL/PL ATELE T platelets 273 x10e3 /uL 150-45 0 Not Available [facility] [address] [facility], [place], [address], 12/17/2023 09:15:25 12/16/19 24 12/17/2023 CBC WITH DIFFE RENTI AL/PL ATELE T neutrophils 74 % notest ab. Not Available [facility] [address] [facility], [place], [address], 12/17/2023 09:15:25 12/16/1912/17/2023 CBC WITH DIFFE RENTI AL/PL ATELE T lymphs 16 % notest ab. Not Available [facility] [address] [facility], [place], [address], 12/17/2023 09:15:25 12/16/1912/17/2023 CBC WITH DIFFE RENTI AL/PL ATELE T monocytes 7 % notest ab. Not Available [facility] [address] [facility], [place], [address], 12/17/2023 09:15:25 12/16/19 24 12/17/2023 CBC WITH DIFFE RENTI AL/PL ATELE T eos 2 % notest ab. Not Available [facility] [address] [facility], [place], [address], 12/17/2023 09:15:25 12/16/19 24 12/17/2023 CBC WITH DIFFE RENTI AL/PL ATELE T basos 1 % notest ab. Not Available [facility] [address] [facility], [place], [address], 12/17/2023 09:15:25 12/16/19 24 12/17/2023 CBC WITH DIFFE RENTI AL/PL ATELE T neutrophils (absolute) 6.6 x10e3 /uL 1.4-7. 0 Not Available [facility] [address] [facility], [place], [address], 12/17/2023 09:15:25 12/16/19 24 12/17/2023 CBC WITH DIFFE RENTI AL/PL ATELE T lymphs (absolute) 1.4 x10e3 /uL 0.7-3. 1 Not Available [facility] [address] [facility], [place], [address], 12/17/2023 09:15:25 12/16/1912/17/2023 CBC WITH DIFFE RENTI AL/PL ATELE T monocytes(ab solute) 0.6 x10e3 /uL 0.1-0. 9 Not Available [facility] [address] [facility], [place], [address], 12/17/2023 09:15:25 12/16/1912/17/2023 CBC WITH DIFFE RENTI AL/PL ATELE T eos (absolute) 0.2 x10e3 /uL 0.0-0. 4 Not Available [facility] [address] [facility], [place], [address], 12/17/2023 09:15:25 12/16/19 24 12/17/2023 CBC WITH DIFFE RENTI AL/PL ATELE T baso (absolute) 0.1 x10e3 /uL 0.0-0. 2 Not Available [facility] [address] [facility], [place], [address], 12/17/2023 09:15:25 12/16/1912/17/2023 CBC WITH DIFFE RENTI AL/PL ATELE T immature granulocytes 0 % notest ab. Not Available [facility] [address] [facility], [place], [address], 12/17/2023 09:15:25 12/16/1912/17/2023 CBC WITH DIFFE RENTI AL/PL ATELE T immature grans (abs) 0.0 x10e3 /uL 0.0-0. 1 Not Available [facility] [address] [facility], [place], [address], 12/17/2023 09:15:25 01/24/20 24 01/25/2024 COMP. METAB OLIC PANEL (14) glucose 81 mg/dL 70-99 Not Available [facility] [address] [facility], [place], [address], 01/25/2024 08:24:48 01/24/20 24 01/25/2024 COMP. METAB OLIC PANEL (14) BUN 19 mg/dL 6-24 Not Available [facility] [address] [facility], [place], [address], 01/25/2024 08:24:48 01/24/20 24 01/25/2024 COMP. METAB OLIC PANEL (14) creatinine 1.49 mg/dL 0.76-1 .27 above high normal Not Available [facility] [address] [place], [address], 01/25/2024 08:24:48 01/24/20 24 01/25/2024 COMP. METAB OLIC PANEL (14) eGFR 60 mL/mi n/1.7 3 >59 Not Available [facility] [address] [facility], [place], [address], 01/25/2024 08:24:48 01/24/20 24 01/25/2024 COMP. METAB OLIC PANEL (14) BUN/creatini ne ratio 13 -20 Not Available [facility] [address] [place], [address], 01/25/2024 08:24:48 01/24/20 24 01/25/2024 COMP. METAB OLIC PANEL (14) sodium 138 mmol/ L 134-14 4 Not Available [facility] [address] [facility] [place], [address], 01/25/2024 08:24:48 01/24/20 24 01/25/2024 COMP. METAB OLIC PANEL (14) potassium 4.0 mmol/ L 3.5-5. 2 Not Available [facility] [address] [facility] [place], [address], 01/25/2024 08:24:48 01/24/20 24 01/25/2024 COMP. METAB OLIC PANEL (14) chloride 104 mmol/ L 96-106 Not Available [facility] [address] [facility] [place], [address], 01/25/2024 08:24:48 01/24/20 24 01/25/2024 COMP. METAB OLIC PANEL (14) carbon dioxide, total 22 mmol/ L 20-29 Not Available [facility] [address] [facility] [place], [address], 01/25/2024 08:24:48 01/24/20 24 01/25/2024 COMP. METAB OLIC PANEL (14) calcium 8.8 mg/dL 8.7-10 .2 Not Available [facility] [address] [facility] [place], [address], 01/25/2024 08:24:48 01/24/20 24 01/25/2024 COMP. METAB OLIC PANEL (14) protein, total 6.6 g/dL 6.0-8. 5 Not Available [facility] [address] [facility] [place], [address], 01/25/2024 08:24:48 01/24/20 24 01/25/2024 COMP. METAB OLIC PANEL (14) albumin 4.3 g/dL 4.1-5. 1 Not Available [facility] [address] [facility], [place], [address], 01/25/2024 08:24:48 01/24/20 24 01/25/2024 COMP. METAB OLIC PANEL (14) globulin, total 2.3 g/dL 1.5-4. 5 Not Available [facility] [address] [facility], [place], [address], 01/25/2024 08:24:48 01/24/20 24 01/25/2024 COMP. METAB OLIC PANEL (14) bilirubin, total 0.7 mg/dL 0.0-1. 2 Not Available [facility] [address] [facility] [place], [address], 01/25/2024 08:24:48 01/24/20 24 01/25/2024 COMP. METAB OLIC PANEL (14) alkaline phosphatase 69 IU/L 44-121 Not Available [facility] [address] [facility], [place], [address], 01/25/2024 08:24:48 01/24/20 24 01/25/2024 COMP. METAB OLIC PANEL (14) AST (SGOT) 18 IU/L 0-40 Not Available [facility] [address] [facility], [place], [address], 01/25/2024 08:24:48 01/24/20 24 01/25/2024 COMP. METAB OLIC PANEL (14) ALT (SGPT) 21 IU/L 0-44 Not Available [facility] [address] [facility], [place], [address], 01/25/2024 08:24:48 01/24/20 24 01/25/2024 LIPAS E lipase 71 U/L 13-78 Not Available [facility] [address] [facility], [place], [address], 01/25/2024 08:24:49 01/24/20 24 01/25/2024 CBC WITH DIFFE RENTI AL/PL ATELE T WBC 4.4 x10e3 /uL 3.4-10 .8 Eff ectiv e Decem tess 2023 profi beltran [id number] 5 WBC will be made* * non-o rdera ble as a stand -chris e order code. Not Available [facility] [address] [facility], [place], [address], 01/25/2024 08:24:50 01/24/20 24 01/25/2024 CBC WITH DIFFE RENTI AL/PL ATELE T RBC 4.76 x10e6 /uL 4.14-5 .80 Not Available [facility] [address] [facility], [place], [address], 01/25/2024 08:24:50 01/24/20 24 01/25/2024 CBC WITH DIFFE RENTI AL/PL ATELE T hemoglobin 14.6 g/dL 13.0-1 7.7 Not Available [facility] [address] [facility], [place], [address], 01/25/2024 08:24:50 01/24/20 24 01/25/2024 CBC WITH DIFFE RENTI AL/PL ATELE T hematocrit 43.6 % 37.5-5 1.0 Not Available [facility] [address] [place], [address], 01/25/2024 08:24:50 01/24/20 24 01/25/2024 CBC WITH DIFFE RENTI AL/PL ATELE T MCV 92 fL 79-97 Not Available [facility] [address] [place], [address], 01/25/2024 08:24:50 01/24/20 24 01/25/2024 CBC WITH DIFFE RENTI AL/PL ATELE T MCH 30.7 pg 26.6-3 3.0 Not Available [facility] [address] [facility], [place], [address], 01/25/2024 08:24:50 01/24/20 24 01/25/2024 CBC WITH DIFFE RENTI AL/PL ATELE T MCHC 33.5 g/dL 31.5-3 5.7 Not Available [facility] [address] [facility], [place], [address], 01/25/2024 08:24:50 01/24/20 24 01/25/2024 CBC WITH DIFFE RENTI AL/PL ATELE T RDW 13.0 % 11.6-1 5.4 Not Available [facility] [address] [place], [address], 01/25/2024 08:24:50 01/24/20 24 01/25/2024 CBC WITH DIFFE RENTI AL/PL ATELE T platelets 188 x10e3 /uL 150-45 0 Not Available [facility] [address] [facility], [place], [address], 01/25/2024 08:24:50 01/24/20 24 01/25/2024 CBC WITH DIFFE RENTI AL/PL ATELE T neutrophils 60 % notest ab. Not Available [facility] [address] [place], [address], 01/25/2024 08:24:50 01/24/20 24 01/25/2024 CBC WITH DIFFE RENTI AL/PL ATELE T lymphs 23 % notest ab. Not Available [facility] [address] [place], [address], 01/25/2024 08:24:50 01/24/20 24 01/25/2024 CBC WITH DIFFE RENTI AL/PL ATELE T monocytes 14 % notest ab. Not Available [facility] [address] [place], [address], 01/25/2024 08:24:50 01/24/20 24 01/25/2024 CBC WITH DIFFE RENTI AL/PL ATELE T eos 2 % notest ab. Not Available [facility] [address] [facility], [place], [address], 01/25/2024 08:24:50 01/24/20 24 01/25/2024 CBC WITH DIFFE RENTI AL/PL ATELE T basos 1 % notest ab. Not Available [facility] [address] [facility], [place], [address], 01/25/2024 08:24:50 01/24/20 24 01/25/2024 CBC WITH DIFFE RENTI AL/PL ATELE T neutrophils (absolute) 2.6 x10e3 /uL 1.4-7. 0 Not Available [facility] [address] [facility], [place], [address], 01/25/2024 08:24:50 01/24/20 24 01/25/2024 CBC WITH DIFFE RENTI AL/PL ATELE T lymphs (absolute) 1.0 x10e3 /uL 0.7-3. 1 Not Available [facility] [address] [place], [address], 01/25/2024 08:24:50 01/24/20 24 01/25/2024 CBC WITH DIFFE RENTI AL/PL ATELE T monocytes(ab solute) 0.6 x10e3 /uL 0.1-0. 9 Not Available [facility] [address] [place], [address], 01/25/2024 08:24:50 01/24/20 24 01/25/2024 CBC WITH DIFFE RENTI AL/PL ATELE T eos (absolute) 0.1 x10e3 /uL 0.0-0. 4 Not Available [facility] [address] [facility], [place], [address], 01/25/2024 08:24:50 01/24/20 24 01/25/2024 CBC WITH DIFFE RENTI AL/PL ATELE T baso (absolute) 0.1 x10e3 /uL 0.0-0. 2 Not Available [facility] [address] [facility], [place], [address], 01/25/2024 08:24:50 01/24/20 24 01/25/2024 CBC WITH DIFFE RENTI AL/PL ATELE T immature granulocytes 0 % notest ab. Not Available [facility] [address] [facility], [place], [address], 01/25/2024 08:24:50 01/24/20 24 01/25/2024 CBC WITH DIFFE RENTI AL/PL ATELE T immature grans (abs) 0.0 x10e3 /uL 0.0-0. 1 Not Available [facility] [address] [facility], [place], [address], 01/25/2024 08:24:50 01/24/20 24 01/25/2024 SEDIM ENTAT ION RATE- WESTE RGREN sedimentatio n rate-westerg иван 2 mm/HR 0-15 Not Available [facility] [address] [place], [address], 01/25/2024 08:24:51 02/21/20 24 02/21/2024 BASIC METAB OLIC PANEL (8) interpretati on: COMMEN T GFR estim ate at the follo wing level for >or=3 month s is class ified as follo ws: GFR WITH KIDNE Y DAMAG E WITHO UT KIDNE Y DAMAG E >or=9 0 Stage 1 Juany l 60-89 Stage 2 Decr eased GFR 30-59 Stage 3 Stage 3 15-29 Stage 4 Stage 4 <15 (or dialy sis) Stage 5 Stage 5 Estim ated GFR will over estim ate true GFR if serum creat inine is risin g as in acute renal failu re and will under estim ate true GFR if serum creat inine is decli ye as in resol ving acute renal failu re. Addit maggial infor jack peralta may be found at www.k doqi. org. Not Available [facility] [address] [place], [address], 02/22/2024 07:10:36 02/21/20 24 02/22/2024 BASIC METAB OLIC PANEL (8) glucose 81 mg/dL 70-99 Not Available [facility] [address] [place], [address], 02/22/2024 07:10:36 02/21/20 24 02/22/2024 BASIC METAB OLIC PANEL (8) BUN 16 mg/dL 6-24 Not Available [facility] [address] [facility], [place], [address], 02/22/2024 07:10:36 02/21/20 24 02/22/2024 BASIC METAB OLIC PANEL (8) creatinine 1.19 mg/dL 0.76-1 .27 Not Available [facility] [address] [place], [address], 02/22/2024 07:10:36 02/21/20 24 02/22/2024 BASIC METAB OLIC PANEL (8) eGFR 79 mL/mi n/1.7 3 >59 Not Available [facility] [address] [place], [address], 02/22/2024 07:10:36 02/21/20 24 02/22/2024 BASIC METAB OLIC PANEL (8) BUN/creatini ne ratio 13 9-20 Not Available [facility] [address] [place], [address], 02/22/2024 07:10:36 02/21/20 24 02/22/2024 BASIC METAB OLIC PANEL (8) sodium 143 mmol/ L 134-14 4 Not Available [facility] [address] [facility], [place], [address], 02/22/2024 07:10:36 02/21/20 24 02/22/2024 BASIC METAB OLIC PANEL (8) potassium 3.6 mmol/ L 3.5-5. 2 Not Available [facility] [address] [facility], [place], [address], 02/22/2024 07:10:36 02/21/20 24 02/22/2024 BASIC METAB OLIC PANEL (8) chloride 106 mmol/ L 96-106 Not Available [facility] [address] [place], [address], 02/22/2024 07:10:36 02/21/20 24 02/22/2024 BASIC METAB OLIC PANEL (8) carbon dioxide, total 24 mmol/ L 20-29 Not Available [facility] [address] [facility], [place], [address], 02/22/2024 07:10:36 02/21/20 24 02/22/2024 BASIC METAB OLIC PANEL (8) calcium 9.0 mg/dL 8.7-10 .2 Not Available [facility] [address] [place], [address], 02/22/2024 07:10:36 04/08/19 25 04/08/2024 influ markus virus A + B + SARS- CoV-2 (COVI D19) Ag panel , rapid IA, upper respi rator y speci men Flu A positi ve Not Available In-Office Order Internal Use Only DO Not Attach Compendium DO Not Attach Compendium, Do Not Delete/merge, [id number] 04/08/2024 12:04:39 04/08/19 25 04/08/2024 influ markus virus A + B + SARS- CoV-2 (COVI D19) Ag panel , rapid IA, upper respi rator y speci men Flu B negati ve Not Available In-Office Order Internal Use Only DO Not Attach Compendium DO Not Attach Compendium, Do Not Delete/merge, [id number] 04/08/2024 12:04:39 04/08/19 25 04/08/2024 influ markus virus A + B + SARS- CoV-2 (COVI D19) Ag panel , rapid IA, upper respi rator y speci men Rapid SARS CoV 2 Ag, QL IA, respiratory specimen negati ve Not Available In-Office Order Internal Use Only DO Not Attach Compendium DO Not Attach Compendium, Do Not Delete/merge, [id number] 04/08/2024 12:04:39 08/19/19 24 05/20/2023 XR, jani ble No observ ation record ed. [address] [facility], [place], [address], 08/19/2023 12:40:37 12/24/19 24 12/23/2023 US, scrot um No observ ation record ed. [address] [facility], [place], [address], 12/25/2023 14:52:37 02/05/20 24 02/04/2024 CT, abdom en + pelvi s, w/ contr ast No observ ation record ed. [address] [facility], [place], [address], 02/20/2024 10:25:30 03/02/20 24 03/02/2024 XR, knee, 3 view No observ ation record ed. [address] [facility], [place], [address], 03/06/2024 10:08:33 03/02/20 24 03/02/2024 XR, knee, 3 view No observ ation record ed. [address] [facility], [place], [address], 03/06/2024 10:08:34 Result Notes None recorded. Problems Name Problem SNOMED Code Status Onset Date Resolution Date Notes Provider Name and Address Organization Details Recorded Time Essential hypertension 22396482 Active 2023 Juan Park [place] null, [place] 4 17:06:51 Hyperlipidemia 99208847 Active 2023 Juan Park [place] null, [place] 4 17:06:52 Hemorrhoids 27735859 Active 2023 Candace Lozano MD Attn: Marisol hermes,[address] [facility], [place], [address], [facility] - [facility] 4 21:52:08 Problem Notes None recorded. Procedures Surgical History Date Name Laterality Status Provider Name and Address Organization Details Recorded Time Arthroscopic Surgery completed Suni Davial [place] 05/06/2023 10:29:15 Imaging Results Imaging Date Name Status LastModified by Organiz ation Details LastModified Time 05/20/2023 XR, mandible completed [id number], [address], 08/19/2023 12:40:37 12/23/2023 US, scrotum completed [address], [address], 12/25/2023 14:52:37 02/04/2024 CT, abdomen + pelvis, w/ contrast completed [address], [address], 02/20/2024 10:25:30 03/02/2024 XR, knee, 3 view completed [address], [address], 03/06/2024 10:08:33 03/02/2024 XR, knee, 3 view completed [address] [place] [address], [address], 03/06/2024 10:08:34 Procedure Notes None recorded. Medical Equipment None Reported. Allergies No known drug allergies Medications Name Sig Start Date Stop Date Status Note LastModified by Organization Details LastModified Time ibuprofen 800 mg tablet TAKE 1 TABLET BY MOUTH THREE TIMES DAILY WITH FOOD active Not Available Not Available No t Available prednisone 20 mg tablet TAKE 2 TABLETS BY MOUTH DAILY FOR 5 DAYS active Not Available Not Available No t Available valsartan 160 mg-hydrochl orothiazide 12.5 mg tablet TAKE 1 TABLET DAILY active Not Available Not Available No t Available Anucort-HC 25 mg suppository UNWRAP AND INSERT 1 SUPPOSITO RY RECTALLY TWICE DAILY FOR 10 DAYS active Not Available Not Available No t Available sulfamethox azole 800 mg-trimetho prim 160 mg tablet TAKE 1 TABLET BY MOUTH TWICE DAILY active Not Available Not Available No t Available propranolol 40 mg tablet TAKE 1 TABLET BY MOUTH TWICE DAILY FOR 1 WEEK THEN TAKE 2 TABLETS BY MOUTH TWICE DAILY active Not Available Not Available No t Available pantoprazol e 40 mg tablet,juan yed release TAKE 1 TABLET BY MOUTH EVERY DAY active Not Available Not Available No t Available oseltamivir 75 mg capsule Take 1 capsule twice a day by oral route with meal(s) for 5 days. 2024 active Not Available Not Available Not Avai lable gabapentin 300 mg capsule TAKE 1 CAPSULE BY MOUTH EVERY DAY active Not Available Not Available No t Available fluticasone propionate 50 mcg/actuati on nasal spray,suspe nsion USE 2 SPRAYS IN EACH NOSTRIL ONCE DAILY active Not Available Not Available No t Available amoxicillin 875 mg-potassiu m clavulanate 125 mg tablet TAKE 1 TABLET BY MOUTH TWICE DAILY 01/22 completed Not Available Not Available Not Available hydroxyzine pamoate 25 mg capsule TAKE 1 CAPSULE BY MOUTH TWICE DAILY NEEDED active Not Available Not Available No t Available topiramate 50 mg tablet active Not Available Not Available Not Available All Day Allergy (cetirizine ) 10 mg tablet Take 1 tablet every day by oral route. active Not Available Not Available No t Available Vitals Date Recorded Body height Body mass index (BMI) Body weight Oxygen saturation Oxygen saturation in Arterial blood by Pulse oximetry Heart rate Systolic blood pressure Diastolic blood pressure Provider Name and Address Organization Details Last Updated DateTime 4 175.26 cm 31.5 kg/m2 20654.1 7 g 99 % 99 % 93 /min 137 mm[Hg] 86 mm[Hg] Suni Davila MA [facility] 4 10:33:30 Date Recorded Body height Body mass index (BMI) Body weight Heart rate Oxygen saturation Oxygen saturation in Arterial blood by Pulse oximetry Systolic blood pressure Diastolic blood pressure Provider Name and Address Organization Details Last Updated DateTime 4 175.26 cm 31.9 kg/m2 90883.2 3 g 81 /min 98 % 98 % 132 mm[Hg] 70 mm[Hg] Sahara Grier MA [facility] 4 16:19:57 Date Recorded Body height Body mass index (BMI) Body weight Heart rate Oxygen saturation Oxygen saturation in Arterial blood by Pulse oximetry Systolic blood pressure Diastolic blood pressure Provider Name and Address Organization Details Last Updated DateTime 4 175.26 cm 32.4 kg/m2 70167.4 5 g 70 /min 99 % 99 % 128 mm[Hg] 70 mm[Hg] Irma Lee MA [facility] 4 10:02:35 Date Recorded Body height Body mass index (BMI) Body weight Heart rate Oxygen saturation Oxygen saturation in Arterial blood by Pulse oximetry Systolic blood pressure Diastolic blood pressure Provider Name and Address Organization Details Last Updated DateTime 4 175.26 cm 32.3 kg/m2 94709.3 7 g 60 /min 98 % 98 % 118 mm[Hg] 62 mm[Hg] Teagan Denise MA [facility] 4 16:59:04 Date Recorded Body height Body mass index (BMI) Body weight Oxygen saturation Oxygen saturation in Arterial blood by Pulse oximetry Heart rate Respiratory rate Body temperature Systolic blood pressure Diastolic blood pressure Provider Name and Address Organization Details Last Updated DateTime 5 175.26 cm 32.2 kg/m2 70054.1 4 g 100 % 100 % 70 /min 17 /min 97.9 [degF] 120 mm[Hg] 76 mm[Hg] Ivania Perez MA [facility] 5 12:04:06 Social History Question Answer Notes LastModified by Organizat ion Details LastModified Time Tobacco Smoking Status Never Smoker Suni Davila MA null, [facility] 05/06/2023 10:27:42 What Is Your Level Of Alcohol Consumption? Occasional Information not available 05/06/2023 Are You Blind Or Do You Have Difficulty Seeing? No Information not available 05/06/2023 What Is Your Level Of Caffeine Consumption? Occasional Information not available 05/06/2023 Are You Currently Employed? Yes Information not available 05/06/2023 Are You Deaf Or Do You Have Serious Difficulty Hearing? No Information not available 05/06/2023 What Type Of Diet Are You Following? REGULAR Information not available 05/06/2023 What Is The Highest Grade Or Level Of School You Have Completed Or The Highest Degree You Have Received? HI31312-3 Information not available 05/06/2023 What Is Your Occupation? Teacher Information not available 05/06/2023 Are There Any Guns Present In Your Home? No Information not available 05/06/2023 What Was The Date Of Your Most Recent Tobacco Screening? 01/23/2024 [email or web address] Information not available 01/23/2024 What Is Your Relationship Status? Information not available 05/06/2023 Do You Use Your Seat Belt Or Car Seat Routinely? Yes Information not available 05/06/2023 Do You Have Smoke And Carbon Monoxide Detectors In Your Home? Yes Information not available 05/06/2023 Do You Feel Stressed (tense, Restless, Nervous, Or Anxious, Or Unable To Sleep At Night)? [id number] Information not available 05/06/2023 Do You Use Any Illicit Or Recreational Drugs? No Information not available 05/06/2023 Do You Use Sunscreen Routinely? No Information not available 05/06/2023 Has Tobacco Cessation Counseling Been Provided? No Information not available 05/06/2023 Do You Or Have You Ever Used Any Other Forms Of Tobacco Or Nicotine? No Information not available 05/06/2023 Sex: Male Functional Status Question Answer Note LastModified by Organizat ion Details LastModified Time Are you able to care for yourself? Yes Information not available 05/06/2023 What is your exercise level? Occasional Information not available 05/06/2023 Mental Status None recorded. Family History Relationship Description Onset Age of this Age Resolved Age Notes LastModified by Organization Details LastModified Time Brother Asthma [email or web address] Not availab le 05/06/2023 10:35:25 Brother Hypertensive disorder [email or web address] Not available 06/2023 10:36:54 Father Coronary arterioscler osis bandersonma Not available 06/2023 10:35:51 Father Diabetes mellitus [email or web address] Not available 06/2023 10:36:12 Father Heart disease [email or web address] Not available 06/2023 10:36:24 Father Hypertensive disorder [email or web address] Not available 06/2023 10:36:54 Father Hypercholest erolemia bandersonma Not available 06/2023 10:37:18 Father Myocardial infarction [email or web address] Not available 06/2023 10:37:43 Mother Diabetes mellitus [email or web address] Not available 06/2023 10:36:12 Mother Hypertensive disorder bandersonma Not available 06/2023 10:36:54 Medical History Condition Response Coronary Artery Disease N Other N High Blood Pressure Y Atrial Fibrillation N Kidney or Bladder Problems N Thyroid Problems N GI Problems N Depression N COPD N Blood Clots N Skin Problems N Anemia N Heart Attack ([place]) N Anxiety Disorder N Diabetes N Muscle, Joint, or Bone Problems N Seizures/Epilepsy N Acid Reflux (GERD) N Cancer N Stroke N Asthma N Allergies Y High Cholesterol N Hepatitis N Liver Disease N Headaches N Heart Failure N Osteoporosis N Past Encounters Encounter ID Performer Location Encounter Start Date Encounter Closed Date Diagnosis/Indication Diagnosis SNOMED-CT Code Diagnosis ICD10 Code Diagnosis Note [id number] Candace Lozano MD [facility] ([facility] [address] [place] [phone] 05/06/2023 09:51:01 05/06/2023 11:08:14 Essential hypertension 89005982 I10 Pain in face 72730686 R5 1.9 Dysuria 01362415 R30.0 Gastroesop hageal reflux disease without esophagitis 894066090 K21.9 Headache 03733829 R51.9 [id number] Candace Lozano MD [facility] [place] [address] [place] [address] 08/15/2023 15:33:20 08/15/2023 17:05:33 Essential hypertension 31095883 I10 Hyperlipidemia 31201405 E78.5 Hemorrhoids 02645052 K64 .9 [id number] Candace Lozano MD [facility] [place] [address] [place] [address] 12/16/2023 09:46:25 12/16/2023 10:42:12 Obesity 076338420 E66.9 Essential hypertension 03230950 I10 Hyperlipidemia 05630505 E78.5 Pain in scrotum 50785254 N50.82 [id number] Candace Lozano MD [facility] [place] [address] [place] [address] 01/23/2024 16:45:24 01/23/2024 18:06:11 Abdominal pain 08292585 R10.9 [id number] Ivania Perez MA [facility] [employer] [facility] [address] [place] [id number] 04/08/2024 12:00:07 04/08/2024 12:32:02 Influenza caused by Influenza A virus 143637877 J09.X2 Health Concerns Section Related Observation LastModified by Organization Detai ls LastModified Time None Recorded Concern Status LastModified by Organization Details LastModified Time None Recorded Advance Directives Directive None Recorded Payers Encounter Date Sequence Insurance Name Policy Number Policy Estrada Covered Member ID Estrada Member ID Guarantor Name 05/06/2023 1 [facility] [id number] Rodrigo Verma [id number] Rodrigo Verma 08/15/2023 1 [facility] [id number] Rodrigo Verma [id number] Rodrigo Verma 12/16/2023 1 [facility] [id number] Rodrigo Verma [id number] Rodrigo Verma 01/23/2024 1 [facility] [id number] Rodrigo Verma [id number] Rodrigo Verma Notes Date Note Type Note Provider Name and Address Organization Details Recorded Time 05/06/2023 text/html Pain face left s jhoan sometimes it shoots across the face but never past midline and sometimes is just a dull pressure just right below the zygomatic arch. No problems chewing Topamax actually helped initially but now it seems to be losing its efficacy with regards to that as it has helped with his headaches so. Some mild dysuria that is intermittent with no rhyme or reason. GERD no nausea no vomiting hypertension no headache or dizziness Candace Lozano MD Attn: Accounting, [address] , [place], [address], [place] [facility] 05/06/2023 12:23:03 08/15/2023 text/html 23-year-old follow-up of medical problems hypertension no chest pain or shortness of breath. Headaches fairly stable still gets sensations on left side of his head but he quit taking the gabapentin rhinitis fluticasone helps he is also had some pain with bowel movement but no blood dyslipidemia discharge follow-up Candace Lozano MD Attn: Accounting, [address] [facility], [place], [address], [facility] 08/17/2023 21:52:48 12/16/2023 text/html hypertension no headache no dizziness hyperlipidemia does pretty good with diet. Overweight a little bit could do some help. A little bit of pain and scrotum from time to time Candace Lozano MD Attn: Accounting, [address] [facility], [place], [address], [place] [facility] 12/21/2023 20:39:48 01/23/2024 text/html he has been havi ng some problems with some abdominal pain on the left side that is underneath his rib cage sometimes down into his left lower quadrant without bowel complaints he says it does wake him up at night sometimes twisting makes it worse sometimes he will have some nausea but no vomiting with it he has had no blood in his stool. He has had some problems with some pain down in his scrotal area and he has seen Urology in recently I believe finish some antibiotics for possible prostate infection. Also states that at times he feels like he has got a pulse sensation in the buttocks that extends down into the quads some bouts of nausea and some indigestion he has been going on for several months he also gets the throat symptoms he has had for last several years without any change sometimes feels like he has fluid in his left ear HDL is feels at times that his left side of his face is heavy and he has been evaluated by Neurology for this says he is not sleeping well in energy level is poor Candace Lozano MD Attn: Accounting[address] [facility], [place], [address], [facility] 01/25/2024 13:10:49
--- OUTSIDE RECORDS SUMMARY | 2024-04-09 15:51 | XMS_ITS | Clinical Summary ---
Author Organization [facility] Building [address] [place] [phone] Care Team Providers Care Spinning Lathe Operator Name Role Phone Osvaldo Lozano MD Primary Care Provider + [phone] Allergies No known active allergies Medications valsartan-hydro CHLOROthiazide (DIOVAN-HCT) 160-12.5 mg per tablet valsartan 160 mg-hydrochlor othiazide 12.5 mg tablet TAKE 1 TABLET DAILY 03/04/18 70 Active loratadine (CLARITIN) 10 mg tablet Claritin 10 mg tablet Take 1 tablet every day by oral route. 01/27/20 13 Active gabapentin (NEURONTIN) 300 mg capsule Active topiramate (TOPAMAX) 50 mg tabletIndicatio ns:Chronic migraine w/o aura w/o status migrainosus, not intractable Take 1 tablet (50 mg total) by mouth 2 (two) times a day 180 tablet 3 12/11/[address] (PROTONIX) 40 mg EC tablet Take 1 tablet (40 mg total) by mouth daily Active propranoloL (INDERAL) 40 mg tablet TAKE 2 TABLETS BY MOUTH TWICE DAILY 120 tablet 5 03/19/19 25 Active hydrOXYzine (VISTARIL) 25 mg capsule Take 1 capsule (25 mg total) by mouth 2 (two) times a day as needed 02/16/20 22 025 Discontinued propranoloL (INDERAL) 40 mg tablet Take one tablet po bid for one week, then 2 tablets po bid 120 tablet 3 12/11/19 24 025 Discontinued Active Problems Problem Noted Date Diagnosed Date Paresthesia of left upper and lower extremity Chronic migraine w/o aura w/ o status migrainosus, not intractable 03/08/2022 Encounters Date Type Department Care Team Description 03/26/2024 3:07 PM MULE OPERATOR - 03/26/2024 11:59 PM MULE OPERATOR Hospital Encounter [facility] 1 [place] [address] Paresthesia of left upper and lower extremity Discharge Disposition: Discharge to home or self care 03/18/2024 8:30 AM MULE OPERATOR Office Visit [facility] [address] [facility] [address] [place] [phone] Osvaldo Dominique MD Chronic migraine w/o aura w/o status migrainosus, not intractable (Primary Dx); Paresthesia of left upper and lower extremity from Last 3 Months Surgical History Surgery Date Site/Laterality Comments KNEE SURGERY Medical History Medical History Date Comments Hypertension Family History Medical History Relation Name Comments Diabetes Father Hypertension Father Stroke Maternal Grandfather Diabetes Mother Hypertension Mother Liver cancer Paternal Grandmother Relation Name Status Comments Father Maternal Grandfather Mother Paternal Grandmother Social History Tobacco Use Types Packs/Day Years Used Date Smoking Tobacco: Never Smokeless Tobacco: Never Tobacco Cessation:Counseling Given: Not Answered Sex and Gender Information Value Date Recorded Sex Assigned at Not on file Legal Sex Male 8:04 PM MULE OPERATOR Gender Identity Not on file Sexual Orientation Not on file Obstetrics History Last Filed Vital Signs Vital Sign Reading Time Taken Comments Blood Pressure 116/75 03/18/2024 8:22 AM MULE OPERATOR Pulse 89 03/18/2024 8:22 AM MULE OPERATOR Temperature - - Respiratory Rate 16 07/25/2022 8:26 AM CDT Oxygen Saturation 99% 03/18/2024 8:22 AM MULE OPERATOR Inhaled Oxygen Concentration - - Weight 101.1 kg (222 lb 12.8 oz) 03/18/2024 8:22 AM MULE OPERATOR Height 175.3 cm (5' 9.02 ) 03/18/2024 8:22 AM CS T Body Mass Index 32.89 03/18/2024 8:22 AM MULE OPERATOR Plan of Treatment Health Maintenance Due Date Last Done Comments Depression Screening 1982 Hepatitis C Screening 1982 Varicella Vaccines (1 of 2 - 13+ 2-dose series) 06/13/1995 Hepatitis B Screening 2000 Regular Well Visit/Exam 18-64 2000 DTaP/Tdap/Td Vaccine (2 - Td or Tdap) 08/04/2023 08/03/2013 Covid-19 Vaccine ( season) 2023 01/06/2021, 05/02/2020, 04/04/2020 Influenza Vaccine (#1) 2023 2, 12/12/2020, 12/17/2019, Additional history exists HPV Vaccines Aged Out No longer eligi ble based on patient's age to complete this topic Pneumococcal vaccine <65 Aged Out No longer eligible based on patient's age to complete this topic Procedures Procedure Name Priority Date/Time Associated Diagnosis Comments MRI CERVICAL SPINE W WO CONTRAST Schedule CODY, Read Routine (Patient lives out of area) 03/26/2024 4:16 PM MULE OPERATOR Paresthesia of left upper and lower extremity from Last 3 Months Results * MRI Cervical Spine W WO Contrast (03/26/2024 4:16 PM MULE OPERATOR) Anatomical Region Laterality Modality Spine N/A Magnetic Resonan ce 03/26/2024 4:33 PM MULE OPERATOR Narrative 03/26/2024 4:37 PM MULE OPERATOR EXAM DESCRIPTION: MRI CERVICAL SPINE W WO CONTRAST REASON FOR STUDY: paresthesia on left side. rule out cervical spinal stenosis and multiple sclerosis, rule out cervical spinal stenosis and demyelinating disease Pt has suffer from chronic neck pain for the past 2 years. He's experiencing tingling and numbness down both arms, left> right, dizziness and headaches. No priors; Meds for pain management TECHNIQUE: Sagittal and Axial imaging includes T1, T2, STIR and gradient echo sequences. Post contrast T1-weighted images. CONTRAST TYPE/DOSE: 20mL of GADOTERATE MEGLUMINE 0.5 MMOL/ML INTRAVENOUS SOLUTION (SO) injected via intravenous COMPARISON: No comparison. FINDINGS: ALIGNMENT: Normal. VERTEBRAE: Vertebral body height well-maintained. Normal appearing marrow. DISCS: Mild disc degeneration. See detail below. HARDWARE: None in the spine. CORD: Normal in size and signal intensity. No intramedullary cord signal abnormality or syrinx. No enhancing abnormality of the cervical spinal cord. The cord is normal in caliber without atrophy or expansion. C1-C2: No significant spinal stenosis. C2-C3: No significant spinal stenosis or neural foraminal stenosis. C3-C4: No significant spinal stenosis or neural foraminal stenosis. C4-C5: Uncovertebral spurring on the right. No significant central canal stenosis. No left foraminal narrowing. C5-C6: Facet arthritis on the right with uncovertebral spurring. There is [id number] right foraminal narrowing. No left foraminal narrowing or central canal stenosis. C6-C7: Mild broad-based central disc osteophytic complex. Mild effacement of anterior thecal sac CSF. No foraminal narrowing. C7-T1: No significant spinal stenosis or neural foraminal stenosis. UPPER THORACIC: Incompletely imaged. No significant spinal stenosis or foraminal stenosis. OTHER: No enhancing abnormality or abnormal enhancement. Finding. IMPRESSION: No cord signal abnormality or enhancing abnormality of the cervical cord. Mild cervical spondylosis with mild to moderate right foraminal narrowing at C5-6 due to uncovertebral and facet spurs. No high-grade spinal stenosis or foraminal narrowing at any level. THIS IS AN ELECTRONICALLY VERIFIED FINAL REPORT 03/26/2024 4:37 PM - Electronically signed by Ayanna Levy M.D. LC: SIMBA Report ID: [id number] Reading Location: [place] [address] Procedure Note Corin Levy MD - 03/26/2024 EXAM DESCRIPTION: MRI CERVICAL SPINE W WO CONTRAST REASON FOR STUDY: paresthesia on left side. rule out cervical spinal stenosis and multiple sclerosis, rule out cervical spinal stenosis and demyelinating disease Pt has suffer from chronic neck pain for the past 2 years. He'sexperiencing tingling and numbness down both arms, left> right, dizziness andheadaches. No priors; Meds for pain management TECHNIQUE: Sagittal and Axial imaging includes T1, T2, STIR and gradientecho sequences. Post contrast T1-weighted images. CONTRAST TYPE/DOSE: 20mL of GADOTERATE MEGLUMINE 0.5 MMOL/ML INTRAVENOUS SOLUTION (SO) injected via intravenous COMPARISON: No comparison. FINDINGS: ALIGNMENT: Normal. VERTEBRAE: Vertebral body height well-maintained. Normal appearingmarrow. DISCS: Mild disc degeneration. See detail below. HARDWARE: None in the spine. CORD: Normal in size and signal intensity. No intramedullary cordsignal abnormality or syrinx. No enhancing abnormality of the cervical spinalcord. The cord is normal in caliber without atrophy or expansion. C1-C2: No significant spinal stenosis. C2-C3: No significant spinal stenosis or neural foraminal stenosis. C3-C4: No significant spinal stenosis or neural foraminal stenosis. C4-C5: Uncovertebral spurring on the right. No significant centralcanal stenosis. No left foraminal narrowing. C5-C6: Facet arthritis on the right with uncovertebral spurring. Thereis [id number] right foraminal narrowing. No left foraminal narrowingor central canal stenosis. C6-C7: Mild broad-based central disc osteophytic complex. Mildeffacement of anterior thecal sac CSF. No foraminal narrowing. C7-T1: No significant spinal stenosis or neural foraminal stenosis. UPPER THORACIC: Incompletely imaged. No significant spinal stenosis or foraminal stenosis. OTHER: No enhancing abnormality or abnormal enhancement. Finding. IMPRESSION: No cord signal abnormality or enhancing abnormality of the cervicalcord. Mild cervical spondylosis with mild to moderate right foraminal narrowingat C5-6 due to uncovertebral and facet spurs. No high-grade spinal stenosisor foraminal narrowing at any level. THIS IS AN ELECTRONICALLY VERIFIED FINAL REPORT 03/26/2024 4:37 PM - Electronically signed by Ayanna Levy M.D. LC: SIMBA Report ID: [id number] Reading Location: [place] [address] Osvaldo Dominique MD IM MRI PROCEDURES Dee l Result from Last 3 Months Insurance [facility] CHOICE PLUS Care Teams Spinning Lathe Operator Relationship Specialty Start Date End Date Osvaldo Lozano MD PCP - General Internal Medicine 05/29/21
--- OUTSIDE RECORDS SUMMARY | 2024-04-09 15:51 | XMS_ITS | Referral Summary ---
Author Organization [facility] [address] [place] [phone] Care Team Providers Care Welcome Center Attendant Name Role Phone Osvaldo Lozano MD Primary Care Provider + [phone] Encounters Date Type Department Care Team Description 03/26/2024 3:07 PM PAYLOADER OPERATOR - 03/26/2024 11:59 PM PAYLOADER OPERATOR Hospital Encounter [facility] 1 [place] [address] Paresthesia of left upper and lower extremity Discharge Disposition: Discharge to home or self care 03/18/2024 8:30 AM PAYLOADER OPERATOR Office Visit [facility] [address] [facility] [address] [place] [phone] Osvaldo Dominique MD Chronic migraine w/o aura w/o status migrainosus, not intractable (Primary Dx); Paresthesia of left upper and lower extremity from Last 3 Months Allergies No known active allergies Medications valsartan-hydro [...] w/ o status migrainosus, not intractable 03/08/2022 Social History Tobacco Use Types Packs/Day Years Used Date Smoking Tobacco: Never Smokeless Tobacco: Never Tobacco Cessation:Counseling Given: Not Answered Sex and Gender Information Value Date Recorded Sex Assigned at Not on file Legal Sex Male 8:04 PM PAYLOADER OPERATOR Gender Identity Not on file Sexual Orientation Not on file Last Filed Vital Signs Vital Sign Reading Time Taken Comments Blood Pressure 116/75 03/18/2024 8:22 AM PAYLOADER OPERATOR Pulse 89 03/18/2024 8:22 AM PAYLOADER OPERATOR Temperature - - Respiratory Rate 16 07/25/2022 8:26 AM CDT Oxygen Saturation 99% 03/18/2024 8:22 AM PAYLOADER OPERATOR Inhaled Oxygen Concentration - - Weight 101.1 kg (222 lb 12.8 oz) 03/18/2024 8:22 AM PAYLOADER OPERATOR Height 175.3 cm (5' 9.02 ) 03/18/2024 8:22 AM CS T Body Mass Index 32.89 03/18/2024 8:22 AM PAYLOADER OPERATOR Plan of Treatment Not on file Procedures Procedure Name Priority Date/Time Associated Diagnosis Comments MRI CERVICAL SPINE W WO CONTRAST Schedule CODY, Read Routine (Patient lives out of area) 03/26/2024 4:16 PM PAYLOADER OPERATOR Paresthesia of left upper and lower extremity from Last 3 Months Results * MRI Cervical Spine W WO Contrast (03/26/2024 4:16 PM PAYLOADER OPERATOR) Anatomical Region Laterality Modality Spine N/A Magnetic Resonan ce 03/26/2024 4:33 PM PAYLOADER OPERATOR Narrative 03/26/2024 4:37 PM PAYLOADER OPERATOR EXAM DESCRIPTION: MRI CERVICAL SPINE W [...] the right with uncovertebral spurring. There is [id number] right foraminal narrowing. No left foraminal narrowing [...] Ayanna Levy M.D. LC: SIMBA Report ID: [id number] Reading Location: [id number] Procedure Note Corin Levy MD - 03/26/2024 [...] on the right with uncovertebral spurring. Thereis vmgn-pu-[id number] right foraminal narrowing. No left foraminal narrowingor [...] Ayanna Levy M.D. LC: SIMBA Report ID: [id number] Reading Location: [place] [address] Osvaldo Dominique MD IMG MRI PROCEDURES Dee l Result from Last 3 Months Insurance [id number] [place] [address] CHOICE [facility] H[facility]/PPO Address: [place] [address] Care Teams Welcome Center Attendant Relationship Specialty Start Date End Date Osvaldo Lozano MD PCP - General Internal Medicine 05/29/21
== END 2024-04-09 15:41 | disposition home or self-care (01) ==
PROVIDERS: PCP Internal Medicine; Visit Provider Physician Assistant Surgical
DX: M94.262 Chondromalacia, left knee (principal); S83.282A Other tear of lateral meniscus, current injury, left knee, initial encounter; X58.XXXA Exposure to other specified factors, initial encounter; M25.462 Effusion, left knee; M71.22 Synovial cyst of popliteal space [Baker], left knee
CPT/HCPCS: 73721

== ENCOUNTER 2025-02-10 13:17 | Outpatient (CLI) | payer OTHER, SELFPAY ==
--- NOTE | 2025-02-10 13:40 | NEURO_ITS ---
Impression: # Non-diabetic complains of numbness of hands. # Mild evolving Carpal Tunnel Syndrome. 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 # Normal Needle/ EMG exam proximally as well. Nerve Conduction Studies ?Stim Site NR Peak (ms) P-T Amp (?V) Site1 Site2 Delta-P (ms) Dist (cm) Helder (m/s) Left Median Anti Sensory (2-3nd Digit) Wrist ? 4.0 35.8 Wrist 2-3nd Digit 4.0 14.0 35 Wrist ? 4.0 37.6 Wrist 2-3nd Digit 4.0 14.0 35 Right Median Anti Sensory (2-3nd Digit) Wrist ? 3.7 36.0 Wrist 2-3nd Digit 3.7 14.0 38 Wrist ? 3.9 35.3 Wrist 2-3nd Digit 3.7 14.0 38 Left Radial Anti Sensory (Base 1st Digit) Wrist ? 1.8 28.4 Wrist Base 1st Digit 1.8 0.0 Right Radial Anti Sensory (Base 1st Digit) Wrist ? 2.2 23.4 Wrist Base 1st Digit 2.2 0.0 Left Ulnar Anti Sensory (5th Digit) Wrist ? 2.8 56.6 Wrist 5th Digit 2.8 14.0 50 Right Ulnar Anti Sensory (5th Digit) Wrist ? 2.7 55.9 Wrist 5th Digit 2.7 14.0 52 ?Stim Site NR Onset (ms) O-P Amp (mV) Site1 Site2 Delta-0 (ms) Dist (cm) Helder (m/s) Left Median Motor (Abd Poll Brev) Wrist ? 4.5 4.1 Elbow Wrist 5.7 32.0 56 Elbow ? 10.2 2.7 Right Median Motor (Abd Poll Brev) Wrist ? 4.1 3.1 Elbow Wrist 6.4 31.0 48 Elbow ? 10.5 4.9 Left Ulnar Motor (Abd Dig Minimi) Wrist ? 3.4 11.3 A Elbow Wrist 6.3 32.0 51 A Elbow ? 9.7 9.5 B Elbow Wrist 4.6 23.0 50 B Elbow ? 8.0 4.3 Right Ulnar Motor (Abd Dig Minimi) Wrist ? 3.1 13.2 A Elbow Wrist 6.0 31.0 52 A Elbow ? 9.1 12.2 B Elbow Wrist 3.9 21.0 54 B Elbow ? 7.0 8.9 F Wave Studies ?NR F-Lat (ms) L-R F-Lat (ms) Left Median (Mrkrs) (Abd Poll Brev) ? 30.58 0.64 Right Median (Mrkrs) (Abd Poll Brev) ? 29.94 0.64 Left Ulnar (Mrkrs) (Abd Dig Min) ? 30.51 0.85 Right Ulnar (Mrkrs) (Abd Dig Min) ? 29.65 0.85 Electromyography ?Side Muscle Nerve Root Ins Act Fibs Amp Dur Recrt Comment Right 1stDorInt Ulnar C8-T1 Nml Nml Nml Nml Nml Right Ext Indicis Radial (Post Int) C7-8 Nml Nml Nml Nml Nml Right Ext Digitorum Radial (Post Int) C7-8 Nml Nml Nml Nml Nml Right BrachioRad Radial C5-6 Nml Nml Nml Nml Nml Right PronatorTeres Median C6-7 Nml Nml Nml Nml Nml Right Abd Poll Brev Median C8-T1 Nml Nml Nml Nml Nml Right ABD Dig Min Ulnar C8-T1 Nml Nml Nml Nml Nml Right FlexPolLong Median (Ant Int) C7-8 Nml Nml Nml Nml Nml Right Abd Poll Long Radial (Post Int) C7-8 Nml Nml Nml Nml Nml Left 1stDorInt Ulnar C8-T1 Nml Nml Nml Nml Nml Left Ext Indicis Radial (Post Int) C7-8 Nml Nml Nml Nml Nml Left Ext Digitorum Radial (Post Int) C7-8 Nml Nml Nml Nml Nml Left BrachioRad Radial C5-6 Nml Nml Nml Nml Nml Left PronatorTeres Median C6-7 Nml Nml Nml Nml Nml Left Abd Poll Brev Median C8-T1 Nml Nml Nml Nml Nml Left ABD Dig Min Ulnar C8-T1 Nml Nml Nml Nml Nml Left FlexPolLong Median (Ant Int) C7-8 Nml Nml Nml Nml Nml Left Abd Poll Long Radial (Post Int) C7-8 Nml Nml Nml Nml Nml Left Biceps Musculocut C5-6 Nml Nml Nml Nml Nml Left Triceps Radial C6-7-8 Nml Nml Nml Nml Nml Left Deltoid Axillary C5-6 Nml Nml Nml Nml Nml Right Biceps Musculocut C5-6 Nml Nml Nml Nml Nml Right Triceps Radial C6-7-8 Nml Nml Nml Nml Nml Right Deltoid Axillary C5-6 Nml Nml Nml Nml Nml
== END 2025-02-10 13:18 | disposition home or self-care (01) ==
PROVIDERS: PCP Internal Medicine; Visit Provider Internal Medicine
DX: R20.2 Paresthesia of skin (principal)
CPT/HCPCS: 95886; 95911